=== PATIENT | female | born 1945 | race Caucasian/White ===

== ENCOUNTER → 2016-10-21 17:03 | Outpatient (CLI) | payer MEDICARE, OTHER | END | disposition home or self-care (01) | LOC: D.MAMMO 14:15 | DX: Z12.31 Encounter for screening mammogram for malignant neoplasm of breast (principal) ==

== ENCOUNTER 2019-08-29 10:10 | Inpatient (IN) | payer MEDICARE, OTHER ==
[~2019-08-29] VITALS: Ht 175.3 cm; Wt 56.9 kg
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
[2019-08-29 11:42] LABS: BASOPHILS 1.9 % (0-2); EOSINOPHILS 1.4 % (0-7); HEMATOCRIT 36.2 % (36.0-48.0); LYMPHOCYTES 23.6 % (15-50); MCH 32.6 pg (26.0-34.0); MCHC 33.1 g/dL (31.0-37.0); MCV 98.4 fL (80.0-100.0); MEAN PLATELET VOLUME 8.5 fL (7.4-10.4); NEUTROPHILS 65.1 % (40-80); PLATELET COUNT 417 10x3/uL (130-400); RBC 3.68 10x6/uL (4.00-5.40); RDW 15.5 % (11.5-14.5); WBC 4.2 10x3/uL (4.8-10.8)
[2019-08-29 11:44] LABS: ALBUMIN 3.3 g/dL (3.4-5.0); ALKALINE PHOSPHATASE 124 U/L (30-120); ALT (SGPT) 65 U/L (10-68); BILIRUBIN - TOTAL 0.48 mg/dL (0.2-1.3); CALC OSMOLALITY 267 mosm/kg (275-300); CALCIUM 8.6 mg/dL (8.5-10.1); CARBON DIOXIDE 22.7 mmol/L (21.0-32.0); CHLORIDE - SERUM 100 mmol/L (98-107); CHOL - HDL RATIO 1.7 ratio (2.3-4.1); CHOLESTEROL, TOTAL 118 mg/dL (0-200); CREATININE - SERUM 0.7 mg/dL (0.6-1.3); GLUCOSE 94 mg/dL (74-106); HDL CHOLESTEROL 71 mg/dL (32-96); POTASSIUM - SERUM 3.8 mmol/L (3.5-5.1); PROTEIN - SERUM 6.5 g/dL (6.4-8.2); SODIUM 135 mmol/L (136-145); THYROID STIMULATING HORMONE 4.75 uIU/mL (0.36-3.74); UREA NITROGEN 6 mg/dL (7-18); eGFR NON AFRICAN AMERICAN 87 mL/min (90-120)
[2019-08-29 12:09] LABS: TRIGLYCERIDE 837 mg/dL (30-200)
[2019-08-29 12:52] VITALS: BP 158/101
[2019-08-29] MEDS ORDERED: FERROUS SULFAT325 MG PO (12:54)
[2019-08-29] MEDS ORDERED: K-DUR20 MEQ PO (12:54)
[2019-08-29] MEDS ORDERED: MECLIZINE HCL25 MG PO (12:55)
[2019-08-29 14:26] LABS: BILIRUBIN NEGATIVE (NEGATIVE); GLUCOSE NEGATIVE (NEGATIVE); KETONE NEGATIVE (NEGATIVE); NITRITE NEGATIVE (NEGATIVE); UROBILINOGEN NORMAL (NORMAL)
--- NOTE | 2019-08-29 15:50 | NUR ---
The patient is sitting in the dayroom. Discussed with her a medication compliance list. Explained to her that the psychiatrist Dr. Bruce would like her to have the list so that she can let staff know that she is able to stay medication compliant. The information confused the patient as she said "Well, I don't even know the Dr. you are talking about." Explained to her that she met her earlier. Then she said "Oh, I already take those medications." Explained to her that she wiil need to let the nurses know about 15 minutes before the medication is due. She said "You mean I have to call a nurse everytime?" Explained to her that she will be here in the hospital and that the nurses will be here also. She said "Oh, ok." She took the list and folded it up.
[2019-08-29 20:00] VITALS: BP 133/84
--- NOTE | 2019-08-30 01:16 | NUR ---
RECEIVED PATIENT SITTING IN THE DAYROOM. WAS ORIENTED TO PERSON, PLACE AND MONTH. POOR INSIGHT PATIENT STATED "THAT'S WHAT MY DOCTOR RECOMMENDED. FOR TESTS. IT'S THE PROMINENT DOCTOR'S OFFICE [place]." GRANDIOSE. 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 I TRY NOT TO KYLIE OVER 130 POUNDS." ADMINISTER MEDS AND MONITOR COMPLIANCE. REORIENT NEEDED. MED COMPLIANT. PATIENT IS FORGETFUL AEB REPEATEDLY ASKING FOR HER PURSE AND TELEPHONE. POOR RETENTION. CONTINUE POC AND PROVIDE SAFE ENVIRONMENT.
[2019-08-30 07:13] LABS: RAPID PLASMA REAGIN Non Reactive (Non Reactive)
[2019-08-30 08:08] VITALS: Ht 175.3 cm; Wt 56.9 kg
[2019-08-30 08:27] VITALS: BP 154/96
--- NOTE | 2019-08-30 09:00 | NUR ---
NURSE ADMINISTERED ATIVAN 0.[address] JAIN ORDER FOR ANXIETY. PT WAS PACING HALLWAYS UNSURE WHAT SHE WAS LOOKING FOR AND GENERALLY WORRIED. WILL CONT TO ASSESS FOR EFFECTIVENESS.
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
--- NOTE | 2019-08-30 10:08 | NUR ---
PT IS PACING AROUND THE UNIT LOOKING AT ITEMS. PT IS FRIENDLY WITH STAFF THIS A.M. PT IS ALERT, CONFUSED AND ORIENTED TO SELF. WHEN ASKED WHERE SHE IS STATES "I DONT KNOW" AND PROCEEDS TO ANOTHER TOPIC. PT SLEPT 1.75 HOURS PREVIOUS SHIFT. ATIVAN 0.5 MG GIVEN WITH 0900 MEDICATIONS DUE TO PT BEING VERY WORRIED ABOUT WHERE SHE WAS AT AND PACING THE HALLWAYS. PT AMBULATING AND IS UNSTEADY REFUSES TO USE AN ASSITIVE DEVICE STATES "I GET VERTIAGO 2 TIMES A YEAR ABOUT THE TIME AND ITS JUST ALLERGIES." PT IS COMPLIANT WITH MEDS, ASSESSMENTS AND VITALS. NO GRANDOISE THINKING NOTED. WILL CONT PLAN OF CARE.
--- NOTE | 2019-08-30 10:24 | NUR ---
PRN ATIVAN 0.5 MG PO IS EFFETIVE AT THIS TIME. PT IS NOT PACING MUCH AND IS READING A MAGAZINE.
[2019-08-30 12:33] LABS: T4 THYROXINE 2.7 ug/dL (4.7-13.3); THYROID STIMULATING HORMONE 3.42 uIU/mL (0.36-3.74)
[2019-08-30 19:47] VITALS: BP 153/86
--- NOTE | 2019-08-31 04:15 | NUR ---
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
[2019-08-31 09:00] VITALS: BP 148/91
--- NOTE | 2019-08-31 09:00 | NUR ---
RECEIVED PT. IN DINING ROOM FOR B'FAST, ALERT, RESTLESS, PACING ABOUT UNIT, PILFERING. REPEATEDLY ASKING TO USE PHONE ALTHOUGH TELEPHONE TIMES EXPLAINED. MEDS ADMIN PER ORDERS WITH COMPLETE MED COMPLIANCE NOTED. CONT POC DIRECTED.
--- NOTE | 2019-08-31 10:47 | NUR ---
Patient pacing about unit experiencing anxiety, ativan 0.5 mg admin PO for anxiety.
[2019-08-31 20:07] VITALS: BP 129/70
--- NOTE | 2019-09-01 01:40 | NUR ---
B) Patient is alert and oriented to person, poor short term memory, anxious wandering, looking for her purse, I) Administered scheduled medications as ordered, PRN Haldol 2 mg PO given at 21:44 for anxiety, R) Mediation compliant, sleeping now quietly in her room, P) Continue plan of care.
[2019-09-01 08:25] VITALS: BP 141/79
[2019-09-01 09:00] VITALS: BP 141/79
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
--- NOTE | 2019-09-01 17:36 | NUR ---
PT. PLEASANT, CALM, COOPERATIVE THIS SHIFT, MILDLY CONFUSED. NO BEHAVIORAL ISSUES NOTED. PT. MUCH MORE SETTLED THIS SHIFT COMPARED TO 24 HOURS AGO EVIDENCED BY NO PACING WAS PREVIOUSLY THE CASE. MEDS ADMIN PER ORDERS WITH COMPLETE MED COMPLIANCE NOTED. CONT POC DIRECTED.
--- NOTE | 2019-09-01 19:24 | NUR ---
RECEIVED IN HALLWAY STANDING AT NURSES STATION SOCIALIZING WITH A PEER. CALM AND COOPERATIVE WITH CARE AND ASSESSMENT. ENCOURAGE TO EXPRESS NEEDS. RESTING IN BED WITH EYES CLOSED AT THIS TIME. CONTINUE PLAN OF CARE
[2019-09-02 07:53] VITALS: BP 120/75
--- NOTE | 2019-09-02 08:13 | NUR ---
RECEIVED IN HALLWAY OUTSIDE OF NURSES STATION. CALM AND COOPERATIVE WITH CARE AND ASSESSMENT. NO COMPLAINTS. ENCOURAGE TO EXPRESS NEEDS. REDIRECT AND REORIENT NEEDED. EATING BREAKFAST AT THIS TIME. CONTINUE PLAN OF CARE.
--- NOTE | 2019-09-02 20:00 | NUR ---
RECEIVED PATIENT STANDING AT THE NURSES STATION. ORIENTED TO PERSON AND PLACE. WORRIES EXCESSIVELY AND PACES. PATIENT IS FORGETFUL AND WILL ASK THE SAME QUESTIONS OVER AND OVER. TONIGHT PATIENT WAS ASKING FOR A LIST OF THE BOARD MEMBERS OF THE HOSPITAL. NO INSIGHT INTO THE REASON FOR HOSPITALIZATION. 1+ PITTING EDEMA NOTED TO LOWER EXTS. ENCOURAGING PATIENT TO LAY IN BED WITH LEGS ELEVATED. ADMINISTER MEDS AND MONITOR COMPLIANCE. REORIENT NEEDED. MED COMPLIANT. POOR REORIENTATION RELATED TO FORGETFULNESS AND POOR ATTENTION SPAN. CONTINUE POC AND PROVIDE SAFE ENVIRONMENT.
[2019-09-02 20:41] VITALS: BP 118/57
--- NOTE | 2019-09-02 21:47 | NUR ---
PATIENT IS PACING AND WORRYING ABOUT TOMORROW. RELATES SHE WANTS TO BE ABLE TO THINK CLEARLY TOMORROW. PRN ATIVAN 0.5MG PO ADMINISTERED WITOUT DIFFICULTY. ENCOURAGED PATIENT TO LAY DOWN AND KEEP LEGS ELEVATED.
[2019-09-03 07:34] VITALS: BP 147/84
--- NOTE | 2019-09-03 10:38 | NUR ---
REC'D IN HALLWAY SOCIALIZING WITH PEERS BY NURSES STATION. PT IS AWAKE AND ALERT. ORIENTED TO PERSON. PT IS VEY CONFUSED AT TIMES. PT BECOMES VERY ANXIOUS EASILY. PT PACES UNIT DURING SHIFT. PT IS ATTENDING GROUP THERAPY WITH PEERS AT THIS TIME. REDIRECT AND REORIENT NEEDED. WILL CPOC.
--- NOTE | 2019-09-03 12:59 | PN ---
PATIENT:VIKTOR JACKSON MEDICAL RECORD: [id number] LOCATION:[facility]112 ADMISSION DATE: 08/29/19 PROGRESS NOTE DATE OF SERVICE: 09/02/2019 SUBJECTIVE: The patient's case was discussed with staff. She has no new complaint. OBJECTIVE: The patient is partially oriented. She denies any thoughts of harming herself or others. She is sleeping and eating well. ASSESSMENT: Dementia. PLAN: Current medicines have been reviewed and will be maintained. Her long-term prognosis is guarded. TRANSINT:[id number] Voice Confirmation ID: [id number] DOCUMENT ID: [id number] TREY MORGAN MD at 1259 CC: [id number] DICTATION DATE: 09/02/19 1608 CARDIOTHORACIC ANESTHESIA TECHNICIAN: 09/02/192122 ADM IN [facility] [address] [place] [address]
--- NOTE | 2019-09-03 18:58 | NUR ---
RECEIVED IN HALLWAY OUTSIDE OF NURSES STATION. SOCIALIZING WITH PEERS. CALM AND COOPERATIVE WITH CARE AND ASSESSMENT. REDIRECT AND REORIENT NEEDED. CONTINUES TO SOCIALIZE WITH PEERS. CONTINUE PLAN OF CARE
[2019-09-03 20:22] VITALS: BP 111/62
--- NOTE | 2019-09-04 08:30 | NUR ---
RECEIVED IN HALLWAY OUTSIDE OF NURSES STATION. CALM AND COOPERATIVE WITH CARE AND ASSESSMENT. BECOMES AGITATED AT TIMES. REDIRECT AND REORIENT NEEDED. EATING BREAKFAST AT THIS TIME. CONTINUE PLAN OF CARE.
[2019-09-04 09:55] VITALS: BP 123/69
--- NOTE | 2019-09-04 10:00 | NUR ---
PATIENT YELLING AND CURSING AT PHOTOGRAPHIC PROCESS SCREEN MAKER AFTER BEING TOLD SHE CANNOT HAVE KNITTING NEEDLES ON THE UNIT. UNABLE TO REDIRECT AND ATTEMPTS TO ARGUE WITH STAFF AT THIS TIME. WILL CONTINUE TO MONITOR.
--- NOTE | 2019-09-04 11:04 | PN ---
PATIENT:VIKTOR JACKSON MEDICAL RECORD: [id number] LOCATION:[facility]112 ADMISSION DATE: 08/29/19 PROGRESS NOTE DATE OF SERVICE: 09/03/2019 SUBJECTIVE: The patient's case was discussed with staff. She has no new complaint. OBJECTIVE: The patient has been somewhat anxious and a little restless. She has pretty limited insight about her situation. ASSESSMENT: Dementia. PLAN: The patient will be treated with Aricept to assist with her cognitive impairment. I am going to give her a low dose of an antidepressant to assist with her restlessness and depressive symptoms. TRANSINT:[id number] Voice Confirmation ID: [id number] DOCUMENT ID: [id number] TREY MORGAN MD at 1104 CC: [id number] DICTATION DATE: 09/03/19 1441 ADOBE CQ DEVELOPER: 09/03/19 1832 ADM IN [facility] [address] [place] [address]
--- NOTE | 2019-09-04 20:49 | NUR ---
B.) PT IS ALERT AND ORIENTED TO SELF AND SITUATION. SHE IS ABLE TO AMBULATE ON HER OWN WITHOUT ASSISTANCE AND MAKE HER NEEDS KNOWN. SHE CAN BE LABILE AT TIMES BUT HAS DEEPALI VERY PLEASANT WITH STAFF AND MOST OF HER PEERS. I.) PROVIDED ALL PM MEDICATIONS PRESCRIBED. REDIRECT PRN. R.) COMPLIANT WITH ALL MEDICATIONS. EASY TO REDIRECT. P.) WILL CONTINUE TO MONITOR.
[2019-09-04 23:25] VITALS: BP 123/61
[2019-09-05 08:00] VITALS: BP 113/72
--- NOTE | 2019-09-05 11:34 | PN ---
PATIENT:VIKTOR JACKSON MEDICAL RECORD: [id number] LOCATION:[facility]ANDA [facility]112 ADMISSION DATE: 08/29/19 PROGRESS NOTE DATE OF SERVICE: 09/04/2019 SUBJECTIVE: The patient's case was discussed with staff. She has no new complaint. OBJECTIVE: The patient has tolerated her initial dose of Celexa well. I am going to increase the dose for tomorrow. ASSESSMENT: No change in diagnoses. PLAN: Supportive and educational interventions were made. TRANSINT:[id number] Voice Confirmation ID: [id number] DOCUMENT ID: [id number] TREY MORGAN MD at 1134 CC: [id number] DICTATION DATE: 09/04/19 1141 DRAW BENCH OPERATOR HELPER: 09/04/19 1253 [place] [address]
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
--- NOTE | 2019-09-05 12:13 | NUR ---
Nutrition Follow-up: Diet: Regular PO intake: 100% x all meals Last BM: 09/04/19 WT: 118# (09/01/19)-wheelchair; Admit WT: 127# (08/29/19)-wheelchair Meds reviewed. No new labs. Weight loss of -9# noted. Question accuracy of recorded weights as patient has had excellent and adequate PO intake DHS. Will continue to monitor PO intake and weight trend. Will offer oral nutrition supplement if PO intake and/or weight begin to trend down. RD following.
--- NOTE | 2019-09-05 13:18 | NUR ---
ALERT, CALM, COOPERATIVE THIS SHIFT. NO ADVERSE BEHAVIORS DESPITE CONTINUED CONFUSION. MEDS ADMIN PER ORDERS WITH COMPLETE COMPLIANCE NOTED. CONT. PLAN OF CARE.
--- NOTE | 2019-09-05 16:24 | PN ---
PATIENT:VIKTOR JACKSON MEDICAL RECORD: [id number] LOCATION:[facility]112 ADMISSION DATE: 08/29/19 PROGRESS NOTE DATE OF SERVICE: 09/05/2019 SUBJECTIVE: The patient's case was discussed with staff. She has no new complaint. OBJECTIVE: The patient is withdrawn, but has an euthymic mood. She is partially oriented. ASSESSMENT: Dementia. PLAN: Current medicines have been reviewed and will be maintained. Long-term prognosis is guarded. TRANSINT:[id number] Voice Confirmation ID: [id number] DOCUMENT ID: [id number] TREY OMRGAN MD at 1624 CC: [id number] DICTATION DATE: 09/05/19 1141 BARGE CAPTAIN: 09/05/19 1318 ADM IN [place] [id number] [place] [address]
[2019-09-05 19:30] VITALS: BP 122/58
--- NOTE | 2019-09-05 23:17 | NUR ---
B)RECEIVED PATIENT SITTING OUTSIDE THE NURSE'S STATION. ALERT AND INTRACTING WITH OTHER PEERS. PLEASANT AND COOPERATIVE. I)ADMINISTER MEDS AND MOITOR COMPLIANCE. REORIENT NEEDED. R)MED COMPLIANT. REORIENTS HOWEVER IS FORGETFUL AND REQUIRES REPEATED ORIENTATION I. E. AFTER TALKING WITH PEERS PATIENT ASKED "NOW WHAT DIRECTION DO WE GO?" INSTRUCTED PATIENT WHAT HER ROOM NUMBER IS AND SHE WENT TO HER ROOM. P)CONTINUE POC AND PROVIDE SAFE ENVIRONMENT.
--- NOTE | 2019-09-06 09:41 | NUR ---
The patient is awake and alert, she is pleasant and calm. She ambulates independently. Provide prescribed meds. Encourage group participation. She has poor insight into her situation. The patient is cooperative with meds and unit milieu. Continue POC.
[2019-09-06 09:44] VITALS: BP 110/66
[2019-09-06 09:45] VITALS: BP 110/60
[2019-09-06 20:00] VITALS: BP 142/69
--- NOTE | 2019-09-06 20:55 | NUR ---
B)SITTING AT THE NURSE'S STATION INTERACTING WITH PEERS. CALM AND COOPERATIVE. CONFUSED. I)ADMINISTER MEDS AND MONITOR COMPLIANCE. REORIENT NEEDED. R)MED COMPLIANT. REORIENTS HOWEVER IS FORGETFUL AND REQUIRES REORINETATION. COOPERATIVE WITH UNIT MILEU. P)CONTINUE POC AND PROVIDE SAFE ENVIRONMENT.
--- NOTE | 2019-09-07 08:05 | NUR ---
The patient is awake and alert, she is pleasant. She ambulates independently. She has some lower leg edema and she c/o pain on palpation. She is reading the morning paper in the hallway. She has some confusion and she does not like loud noises and she has no patience with other patients that are confused. Provide prescribed meds. The patient is compliant with meds. Continue POC.
[2019-09-07 08:24] VITALS: BP 108/72
--- NOTE | 2019-09-07 11:26 | PN ---
PATIENT:VIKTOR JACKSON MEDICAL RECORD: [id number] LOCATION:[facility] ADMISSION DATE: 08/29/19 PROGRESS NOTE DATE OF SERVICE: 09/06/2019 SUBJECTIVE: The patient's case was discussed with staff. She has no new complaint. OBJECTIVE: The patient is impaired cognitively, but not disruptive in any way behaviorally. She is partially oriented. She is tolerating her medications well. She does not have recollection of meeting with her associate attorney. ASSESSMENT: Dementia. PLAN: Current medicines have been reviewed and will be maintained. Once appropriate placement is arranged, she can reasonably be transitioned out of the hospital. TRANSINT:[id number] Voice Confirmation ID: [id number] DOCUMENT ID: [id number] TREY MORGAN MD at 1126 CC: [id number] DICTATION DATE: 09/06/19 0736 LOGISTICS INTERN: 09/06/19 0744 ADM IN [facility] [address] [place] [address]
[2019-09-07 19:25] VITALS: BP 172/61
--- NOTE | 2019-09-07 22:19 | NUR ---
B)RECEIVED PATIENT SITTING IN THE DINNING ROOM INTERACTING WITH PEERS. 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 ORIENTED TO SELF AND PLACE. I)ADMINISTER MEDS AND MONITOR COMPLIANCE. REORIENT NEEDED. R)MED COMPLIANT. COOPERATIVE WITH STAFF AND UNIT MILEU. REORIENTS FOR SHORT PERIODS OF TIME BUT IS FORGETFUL AND HAS TO BE REORIENTED. P)CONTINUE POC AND PROVIDE SAFE ENVIRONMENT.
--- NOTE | 2019-09-08 08:29 | NUR ---
RECEIVED IN HALLWAY OUTSIDE OF NURSES STATION. CALM AND COOPERATIVE WITH CARE AND ASSESSMENT. NO ARGUMENTATIVE BEHAVIORS THIS MORNING. REDIRECT AND REORIENT NEEDED. EATING BREAKFAST AT THIS TIME. CONTINUE PLAN OF CARE.
--- NOTE | 2019-09-08 11:01 | PN ---
PATIENT:VIKTOR JACKSON MEDICAL RECORD: [id number] LOCATION:[facility]112 ADMISSION DATE: 08/29/19 PROGRESS NOTE DATE OF SERVICE: 09/07/2019 SUBJECTIVE: The patient's case was discussed with staff. She has no new complaint. OBJECTIVE: The patient ate reasonably well yesterday. She also slept reasonably well yesterday. She is mostly oriented and her mood is euthymic. She has had no significant agitation today. ASSESSMENT: Dementia. PLAN: Current medicines have been reviewed. I am going to maintain her on the Celexa for its antidepressant effect and Aricept for its memory enhancing properties. I think she has improved significantly and anticipate that she can be transitioned out of the hospital soon and at this point we are waiting for adult protective services to assist us with their decision and placement. TRANSINT:[id number] Voice Confirmation ID: [id number] DOCUMENT ID: [id number] TREY MORGAN MD at 1101 CC: [id number] DICTATION DATE: 09/07/19 1223 SHAGGER: 09/07/19 1239 ADM IN [facility] [address] [place] [address]
[2019-09-08 11:19] VITALS: BP 128/66
--- NOTE | 2019-09-08 18:53 | NUR ---
RECEIVED IN HALLWAY OUTSIDE OF NURSES STATION. CALM AND COOPERATIVE WITH CARE AND ASSESSMENT. ENCOURAGE TO EXPRESS NEEDS. REDIRECT AND REORIENT NEEDED. RESTING IN BED WITH EYES CLOSED. CONTINUE PLAN OF CARE
[2019-09-09 08:58] VITALS: BP 131/73
--- NOTE | 2019-09-09 09:36 | NUR ---
RECEIVED IN HALLWAY OUTSIDE OF NURSES STATION. CALM AND COOPERATIVE WITH CARE AND ASSESSMENT. NO ARGUMENTATIVE BEHAVIOR THIS MORNING. REDIRECT AND REORIENT NEEDED. SOCIALIZING WITH OTHER PATIENTS AT THIS TIME. CONTINUE PLAN OF CARE.
--- NOTE | 2019-09-09 10:58 | PN ---
PATIENT:VIKTOR JACKSON MEDICAL RECORD: [id number] LOCATION:[facility]112 ADMISSION DATE: 08/29/19 PROGRESS NOTE DATE OF SERVICE: 09/08/2019 SUBJECTIVE: The patient's case was discussed with staff. She has no new complaint. OBJECTIVE: The patient is in good behavioral control. She has limited insight about her situation. She has not been aggressive. ASSESSMENT: Dementia. PLAN: Current medicines have been reviewed and will be maintained. Long-term prognosis is guarded. Supportive and educational interventions were made. TRANSINT:[id number] Voice Confirmation ID: [id number] DOCUMENT ID: [id number] TREY MORGAN MD at 1058 CC: [id number] DICTATION DATE: 09/08/19 1102 AUTOMOTIVE SHOP FOREMAN: 09/08/19 1143 ADM IN [facility] [address] [place] [address]
[2019-09-09 19:55] VITALS: BP 124/65
--- NOTE | 2019-09-09 20:35 | NUR ---
B.) PT IS ALERT AND ORIENTED TO SELF, PLACE AND SITUATION. SHE IS PLEASANT WITH STAFF AND PEERS. SHE IS ABLE TO MAKE HER NEEDS KNOWN. SHE IS RECEIVED IN THE HALLWAY SOCIALIZING. I.) PROVIDED PM MEDICATIONS. REDIRECT NEEDED. R.) COMPLIANT WITH ALL MEDICATIONS. EASY TO REDIRECT. P.) WILL CONTINUE TO MONITOR.
[2019-09-10 08:12] VITALS: BP 117/74
--- NOTE | 2019-09-10 08:30 | NUR ---
RECEIVED IN HALLWAY OUTSIDE OF NURSES STATION. CALM AND COOPERATIVE WITH CARE AND ASSESSMENT. NO ARGUMENTATIVE BEHAVIOR. REDIRECT AND REORIENT NEEDED. EATING BREAKFAST AT THIS TIME. CONTINUE PLAN OF CARE.
--- NOTE | 2019-09-10 11:02 | PN ---
PATIENT:VIKTOR JACKSON MEDICAL RECORD: [id number] LOCATION:[facility]112 ADMISSION DATE: 08/29/19 PROGRESS NOTE DATE OF SERVICE: 09/09/2019 SUBJECTIVE: The patient's case was discussed with staff. She has no new complaint. OBJECTIVE: The patient denies intent to harm herself or others. She is tolerating her medicines well. She is mostly oriented. She still has some significant short-term memory impairment, but on the whole she has improved significantly. ASSESSMENT: Dementia. PLAN: Current medicines have been reviewed and will be maintained. She will be followed for any clinical changes with her current medications. TRANSINT:[id number] Voice Confirmation ID: [id number] DOCUMENT ID: [id number] TREY MORGAN MD at 1102 CC: [id number] DICTATION DATE: 09/09/19 1349 WAFER MACHINE OPERATOR: 09/09/19 2309 ADM IN [place] [address] [place] [address]
--- NOTE | 2019-09-10 20:51 | NUR ---
RECEIVED IN HALLWAY OUTSIDE OF NURSES STATION. SOCIALIZING WITH PEERS. HELPFUL WITH PEERS. CALM AND COOPERATIVE WITH CARE AND ASSESSMENT. ENCOURAGE TO EXPRESS NEEDS. CONTINUES TO BE HELPFUL WITH PEERS. CONTINUE PLAN OF CARE
[2019-09-10 22:07] VITALS: BP 108/65
[2019-09-11 09:00] VITALS: BP 125/70
--- NOTE | 2019-09-11 14:18 | PN ---
PATIENT:VIKTOR JACKSON MEDICAL RECORD: [id number] LOCATION:[facility]112 ADMISSION DATE: 08/29/19 PROGRESS NOTE DATE OF SERVICE: 09/10/2019 SUBJECTIVE: The patient's case was discussed with staff. She has no new complaint. OBJECTIVE: The patient has significantly improved. She is ambulating better. She is much more cooperative and her cognition is better. This points to the fact that she probably was drinking much more than she thinks or has related to us. I am encouraged by her improvement and I have reviewed current medicines. ASSESSMENT: Dementia. PLAN: The patient will be maintained on current medicines, which I have reviewed. Her long-term prognosis is guarded. TRANSINT:[id number] Voice Confirmation ID: [id number] DOCUMENT ID: [id number] TREY MORGAN MD at 1418 CC: [id number] DICTATION DATE: 09/10/19 1223 WIRE DRAWING MACHINE OPERATOR: 09/10/192034 ADM IN [place] [id number] [place] [address]
--- NOTE | 2019-09-11 16:10 | NUR ---
PATIENT COOPERATIVE THIS SHIFT WITH NO ADVERSE BEHAVIORS NOTED BUT CONTINUES TO BE CONFUSED. NO S/S ETOH WITHDRAWAL. MEDS ADMIN PER ORDERS WITH COMPLETE MED COMPLIANCE NOTED. CONT PLAN OF CARE DIRECTED.
--- NOTE | 2019-09-11 20:35 | NUR ---
PATIENT IS DEMANDING AT TIMES AND TRIES TO TAKE OVER SITUATIONS OF OTHER PATIENTS. SHE IS INTRUSIVE, ABLE TO MAKE NEEDS AND CONCERNS KNOWN, NOT MUCH CONFUSION NOTED. COMPLIANT WITH MEDS
[2019-09-11 22:02] VITALS: BP 126/71
--- NOTE | 2019-09-12 09:27 | PN ---
PATIENT:VIKTOR JACKSON MEDICAL RECORD: [id number] LOCATION:[facility] ADMISSION DATE: 08/29/19 PROGRESS NOTE DATE OF SERVICE: 09/11/2019 SUBJECTIVE: The patient's case was discussed with staff. She has no new complaint. OBJECTIVE: The patient has shown significant improvement. She still has cognitive impairment and certainly is not intact, but relative to admission, she is dramatically better. She has no thoughts of harming herself or others. [facility] is going to evaluate her for retirement placement, but I doubt she is going to meet criteria in her current condition. It is going to create something of a problem because even though she may not be appropriate for retirement, she certainly is not appropriate to be living independently. ASSESSMENT: Dementia. PLAN: Current medicines have been reviewed and will be maintained. Long-term prognosis is guarded. TRANSINT:[id number] Voice Confirmation ID: [id number] DOCUMENT ID: [id number] TREY MORGAN MD at 0927 CC: [id number] DICTATION DATE: 09/11/19 1522 LIABILITY CLAIMS ADJUSTER: 09/11/19 1801 ADM IN [facility] [address] [place] [address]
[2019-09-12 10:25] VITALS: BP 115/65
--- NOTE | 2019-09-12 10:49 | NUR ---
Nutrition Follow-up: Diet: Regular PO intake: 100% Last BM: 09/11/19. WT: 120# (09/08/19); Admit WT: 127# (08/29/19) Meds noted: senokot. No new chem labs to review. Noted inconsistencies in WTs since admit (+/-19#), will continue to monitor weight trend. PO intake has been adequate since admit so patient should not be losing weight. Recommend continue current diet. RD following.
--- NOTE | 2019-09-12 11:02 | NUR ---
The patient is awake and alert, she is pleasant. She has poor insight into her situation. She ambulates independently. She remains confused and does try to compensate at times. Provide prescribed meds. The patient is compliant with meds. Continue POC.
[2019-09-12 19:30] VITALS: BP 139/73
--- NOTE | 2019-09-12 22:47 | NUR ---
B)RECEIVED PATIENT SITTING IN THE DAYROOM. NO INSIGHT INTO REASON FOR HOSPITALIZATION. CAN CARRY ON CONVERSATION HOWEVER HAS TO BE DIRECTED TO HER ROOM. TRIES TO HELP WITH OTHER PATIENTS. I)ADMINISTER MEDS AND MONITOR COMPLIANCE. REORIENT NEEDED. R)MED COMPLIANT. REDIRECTS HOWEVER IS FORGETFUL AND DOES NOT RETAIN INFORMATION. COOPERATIVE AND PLEASANT. P)CONTINUE POC AND PROVIDE SAFE ENVIRONMENT.
--- NOTE | 2019-09-13 10:07 | NUR ---
The patient is awake and alert, she is pleasant and she is interacting with staff and peers. She is oriented x3 and she is confused. She is forgetful as she asks a question and then 5 minutes later she forgets. She ambulates independently. Provide prescribed meds. The patient is compliant with meds. Continue POC.
--- NOTE | 2019-09-13 13:40 | PN ---
PATIENT:VIKTOR ROD MEDICAL RECORD: [id number] LOCATION:[facility]112 ADMISSION DATE: 08/29/19 PROGRESS NOTE DATE OF SERVICE: 09/12/2019 SUBJECTIVE: The patient's case was discussed with staff. She has no new complaint. OBJECTIVE: The patient is partially oriented, cooperative and has a euthymic mood. ASSESSMENT: Dementia. PLAN: Current medicines have been reviewed and will be maintained. I think her improvement is substantial and probably related to the fact that she was drinking excessively at least in part. Information has become available since she has been here that she apparently every 3 days, was taking a taxi to a liquor store and the person who pays her bills for her was seeing these regular charges for a taxi and then a bill at the liquor store. When asked about this, Ms. Rod is evasive and dismissive and very much minimizes the amount she was drinking. I think alcohol abuse is almost certainly a contributing factor to her presentation and it is also in large part an explanation for her improvement. She has not shown any evidence of alcohol withdrawal. TRANSINT:[id number] Voice Confirmation ID: [id number] DOCUMENT ID: [id number] TREY MORGNA MD at 1340 CC: [id number] DICTATION DATE: 09/12/19 1012 SLEEVE FIXER: 09/12/19 1503 ADM IN [facility] [address] [place] [address]
[2019-09-13 13:52] VITALS: BP 123/71
[2019-09-13 20:00] VITALS: BP 127/66
--- NOTE | 2019-09-14 00:33 | NUR ---
B.) PT IS C/O NAUSEA. SHE IS RECEIVED IN HER ROOM RESTING CALMLY. SHE IS PLEASANT WITH STAFF. SHE IS ORIENTED TO SELF AND SITUATION. I.) PROVIDED PM MEDICATIONS PRESCRIBED. REDIRECT NEEDED. R.) COMPLIAT WITH ALL MEDICATIONS. EASY TO REDIRECT. P.) WILL CONTINUE TO MONITOR.
[2019-09-14 08:09] VITALS: BP 117/72
--- NOTE | 2019-09-14 12:42 | NUR ---
The patient is awake and alert, she is pleasant and he has not shown any inappropriate behaviors. She is confused and has poor insight into her situation, but she interacts well with staff and her peers. Provide prescribed meds. The patient is compliant with meds and unit milieu. Continue POC.
[2019-09-14 21:17] VITALS: BP 117/72
[2019-09-14 21:34] VITALS: BP 126/68
--- NOTE | 2019-09-14 23:26 | NUR ---
B.) PT IS ALERT AND ORIENTED TO SELF AND PLACE. SHE HAS POOR INSIGHT INTO HER SITUATION. SHE IS ABLE TO MAKE HER NEEDS KNOWN. SHE IS PLEASANT WITH STAFF AND PEERS. SHE AMBULATES WITHOUT ASSISTANCE. I.) PROVIDED PM MEDICATIONS PRESCRIBED. REDIRECT NEEDED. R.) COMPLIANT WITH ALL MEDICATIONS. EASY TO REDIRECT. P.) WILL CONTINUE TO MONITOR.
[2019-09-15 09:07] VITALS: BP 106/65
--- NOTE | 2019-09-15 11:06 | NUR ---
COMPLIANT WITH STAFF AND MEDS.POOR INSITE TO WHY SHE IS HERE.INTRUSIVE AT TIMES.WILL CONTINUE WITH CURRENT CASTAÑEDA OF CARE,MONNITOR FOR CHANGES AND SAFETY.
[2019-09-15 20:00] VITALS: BP 125/63
--- NOTE | 2019-09-16 00:02 | NUR ---
B.) PT IS ALERT AND ORIENTED TO SELF AND SITUATION. SHE IS ABLE TO AMBULATE ON HER OWN WITHOUT ASSIST. SHE IS ABLE TO MAKE HER NEEDS KNOWN. SHE IS INTRUSIVE WITH PEERS AT TIMES. I.) PROVIDED PM MEDICATIONS PRESCRIBED. REDIRECT NEEDED. R.) COMPLIANT WITH ALL MEDICATIONS. EASY TO REDIRECT. P.) WILL CONTINUE TO MONITOR.
[2019-09-16 00:07] VITALS: BP 125/63
[2019-09-16 08:36] VITALS: BP 114/67
--- NOTE | 2019-09-16 08:45 | NUR ---
RECEIVED IN HALLWAY OUTSIDE OF NURSES STATION. CALM AND COOPERATIVE WITH CARE AND ASSESSMENT. NO BEHAVIORS THIS MORNING. REDIRECT AND REORIENT NEEDED. EATING BREAKFAST AND SOCIALIZING WITH PEERS AT THIS TIME. CONTINUE PLAN OF CARE.
--- NOTE | 2019-09-16 13:55 | PN ---
PATIENT:VIKTOR JACKSON MEDICAL RECORD: [id number] LOCATION:[facility]112 ADMISSION DATE: 08/29/19 PROGRESS NOTE DATE OF SERVICE: 09/15/2019 SUBJECTIVE: The patient states that she has had a good day and that she slept well last night. Reviewed care. The patient's case was discussed with the staff and the patient has no new complaints. OBJECTIVE: The patient is alert and oriented to person and place. Her general appearance is appropriate. Her speech is soft, low tone, low volume. Her eye contact is fair. Her insight is impaired. Her thought and concentration is distracted. Her mood is depressed and anxious with a restricted affect, it is brighter today than yesterday. Mild anxiety. Memory is poor for remote events. The patient does not appear to be attending to visual or auditory hallucinations. Insight and judgment are poor. ASSESSMENT: No changes to previous diagnosis. PLAN: The plan is to continue to monitor with her current meds and to strive to stabilize her mood and behaviors to keep the patient safe and to prepare her for discharge. Dictated By: Noemi Alamo APN I have interviewed/examined the above patient and agree with these documented findings. TRANSINT:[id number] Voice Confirmation ID: [id number] DOCUMENT ID: [id number] TREY MORGAN MD at 1355 at 1555 CC: [id number] DICTATION DATE: 09/15/19 1849 PRINCIPAL TRAINER: 09/16/19 0653 ADM IN [facility] [address] [place] [address]
--- NOTE | 2019-09-16 16:22 | PN ---
PATIENT:VIKTOR JACKSON MEDICAL RECORD: [id number] LOCATION:AMANDA Munoz ADMISSION DATE: 08/29/19 PROGRESS NOTE DATE OF SERVICE: 09/13/2019 SUBJECTIVE: The patient's case was discussed with staff. The patient reports she has had a hamburger for lunch. States slept well and woke without feeling tired. The patient denies any new complaints. OBJECTIVE: The patient is partially oriented, cooperative and has a euthymic mood. She is ambulating in the halls, ate 100% of meals, slept 8.75 hours and is compliant with her medications. The patient's impulsivity is moderate to high. Her judgment and insight are poor. The patient is more conversational with staff. ASSESSMENT: Dementia. PLAN: Continue with current medications, which have been reviewed and will be maintained. Pending [place] assessment results. Monitor for safety, nutrition and cognition. Dictated By: Noemi Alamo APN I have interviewed/examined the above patient and agree with these documented findings. TRANSINT:[id number] Voice Confirmation ID: [id number] DOCUMENT ID: [id number] TREY MORGAN MD at 1622 at 1555 CC: [id number] DICTATION DATE: 09/13/19 1740 BUILDING TRADES TEACHER: 09/13/19 2249 ADM IN [facility] [address] [place] [address]
--- NOTE | 2019-09-16 16:22 | PN ---
PATIENT:VIKTOR JACKSON MEDICAL RECORD: [id number] LOCATION:[facility]112 ADMISSION DATE: 08/29/19 PROGRESS NOTE DATE OF SERVICE: 09/14/2019 SUBJECTIVE: The patient reports "I'm feeling better" and that she loves to cook and that she recently just moved. The patient's case was discussed with staff and the patient has no new complaints. OBJECTIVE: The patient is currently reading a book. She is alert to person and place, disoriented to time and situation. Her voice is soft, low tone, and low volume. Her associations are intact. Her eye contact is fair. Her judgment and insight is impaired. Her concentration is circumstantial. Her mood is depressed and anxious. Her affect is restricted. Anxiety, mild. The patient does not appear to be attending to hallucinations or any psychosis. Her judgment and insight are poor. ASSESSMENT: No change to previous diagnosis. PLAN: Is to continue with current medications and to continue to monitor and strive to stabilize her mood and behaviors, to keep the patient safe and prepare her for discharge. Dictated By: Noemi Alamo APN I have interviewed/examined the above patient and agree with these documented findings. TRANSINT:[id number] Voice Confirmation ID: [id number] DOCUMENT ID: [id number] TREY MORGAN MD at 1622 at 1555 CC: [id number] DICTATION DATE: 09/14/19 1530 SPECK DYER: 09/15/19 0302 ADM IN [facility] [address] [place] [address]
[2019-09-16 20:08] VITALS: BP 121/58
--- NOTE | 2019-09-17 02:17 | NUR ---
B)RECEIVED PATIENT SITTING IN THE DAYROOM. PLEASANT AND TRIES TO HELP WITH THE PATIENTS. CONFUSED AND DISORIENTED. RELATES THE REASON FOR HOSPITALIZATION "OH MY DOCTOR SAID I MIGHT NEED TO MAKE A TRIP OR TWO BUT NOT I THINK IT IS ONLY GOING TO ONE." I)ADMINISTER MEDS AND MONITOR COMPLIANCE. REORIENT NEEDED. R)MED COMPLIANT. PAIENT REORIENTS HOWEVER IS FORGETFUL AND IS NOT ABLE TO RETAIN INFORMATION. P)CONTINUE POC AND PROVIDE SAFE ENVIRONMENT.
--- NOTE | 2019-09-17 09:33 | NUR ---
RECEIVED IN HALLWAY OUTSIDE OF NURSES STATION. CALM AND COOPERATIVE WITH CARE AND ASSESSMENT. NO AGITATION. NO ARGUMENTATIVE BEHAVIORS. REDIRECT AND REORIENT NEEDED. EATING BREAKFAST AT THIS TIME. CONTINUE PLAN OF CARE.
[2019-09-17 10:52] VITALS: BP 128/68
--- NOTE | 2019-09-17 11:47 | PN ---
PATIENT:VIKTOR JACKSON MEDICAL RECORD: [id number] LOCATION:[facility]AN[facility]ender[facility] ADMISSION DATE: 08/29/19 PROGRESS NOTE DATE OF SERVICE: 09/16/2019 SUBJECTIVE: The patient's case was discussed with staff. She has no new complaint. OBJECTIVE: The patient is, but still has some significant short-term memory. On casual conversation, she appears quite intact and conversant, but then beneath the surface it is clear she is significantly impaired. For example, when discussing the possibility that she may be sent home, she said she is going to need some help with getting there because she does not know her address. She tells me this matter of fact as though not knowing her own address is not anything unusual. ASSESSMENT: No change in diagnoses. PLAN: [facility] and their recommendation is pending. I anticipate that they are not going to approve her for jail placement at which case the next step will be to seek guidance from adult protective services and It is unclear what their decision would be. TRANSINT:[id number] Voice Confirmation ID: [id number] DOCUMENT ID: [id number] TREY MORGAN MD at 1147 CC: [id number] DICTATION DATE: 09/16/19 1638 TAX ASSISTANT: 09/17/19 0029 ADM IN [facility] [address] [facility] [place] [address]
[2019-09-17 22:36] VITALS: BP 134/73
--- NOTE | 2019-09-17 23:23 | NUR ---
B.) PT IS ALERT AND ORIENTED TO SELF AND SITUATION. SHE IS INTRUSIVE WITH PEERS. SHE IS ABLE TO AMBULATE WITHOUT ASSIST AND MAKE HER NEEDS KNOWN. I.) PROVIDED PM MEDICATIONS PRESCRIBED. REDIRECT OFTEN. R.) COMPLIANT WITH ALL MEDICATIONS. EASY TO REDIRECT. P.) WILL CONTINUE TO MONITOR
[2019-09-18 10:33] VITALS: BP 114/65
--- NOTE | 2019-09-18 12:44 | NUR ---
RECEIVED IN HALLWAY OUTSIDE OF NURSES STATION. CALM AND COOPERATIVE WITH CARE AND ASSESSMENT. HELPFUL TO OTHER PATIENTS. NO BEHAVIORS. REDIRECT AND REORIENT NEEDED. EATING LUNCH AT THIS TIME. CONTINUE PLAN OF CARE.
--- NOTE | 2019-09-18 15:31 | PN ---
PATIENT:VIKTOR JACKSON MEDICAL RECORD: [id number] LOCATION:[facility] ADMISSION DATE: 08/29/19 PROGRESS NOTE DATE OF SERVICE: 09/17/2019 SUBJECTIVE: The patient's case was discussed with staff. She has no new complaint. OBJECTIVE: The patient is eating well and sleeping well. She has significant cognitive impairment. For example, she told me that she was going to need help getting home because she cannot remember her address. ASSESSMENT: Dementia. PLAN: At this point, the ruling on custodial placement is pending from Assignment Editor. Based upon their approval or disapproval, I will know what steps to take next. I think this is very difficult position that the patient is in. She is not really appropriate to live independently, but she is only marginally appropriate to live in a custodial. Unfortunately, there really does not appear to be any one who can give her some significant degree of supervision and she cannot really afford assisted living. Unless forced to do so through a court order, she is not going to do anything except go home. TRANSINT:[id number] Voice Confirmation ID: [id number] DOCUMENT ID: [id number] TREY MORGAN MD at 1531 CC: [id number] DICTATION DATE: 09/17/19 1426 INVISIBLE BRACES ORTHODONTIST: 09/18/19 0425 ADM IN [place] [id number] [place] [address]
[2019-09-18 21:00] VITALS: BP 142/64
--- NOTE | 2019-09-19 02:26 | NUR ---
B.) PT IS ALERT AND ORIENTED TO SELF AND SITUATION. SHE IS ABLE TO AMBULATE WITHOUT ASSIST AND MAKE HER NEEDS KNOWN. SHE IS CALM AND COOPERATIVE WITH STAFF AND PLEASANT WITH PEERS. SHE IS OBSERVED ATTEMPTING TO HELP OTHER FIND THEIR ROOM. I.) PROVIDED PM MEDICATIONS PRESCRIBED. RECORDED EKG. R.) COMPLIANT WITH ALL MEDICATIONS AND EKG. P.) CONTINUE TO MONITOR.
--- NOTE | 2019-09-19 09:00 | NUR ---
RECEIVED IN HALLWAY OUTSIDE OF NURSES STATION. CALM AND COOPERATIVE WITH CARE AND ASSESSMENT. NO BEHAVIORS NOTED. REDIRECT AND REORIENT NEEDED. EATING BREAKFAST AT THIS TIME. CONTINUE PLAN OF CARE.
--- NOTE | 2019-09-19 11:25 | NUR ---
Nutrition Follow-up: Diet: Regular PO intake: 75-100% x all meals Last BM: 09/18/19. WT: 121# (09/15/19); Admit WT: 127# (08/29/19) Meds noted: senokot. No new labs. Question accuracy of admit WT vs. fluid status. Patient has had excellent PO intake since admit. Noted wt down -6#, however it seems to be trending steady/up most recently. Recommend continue current diet. RD following.
--- NOTE | 2019-09-19 16:47 | PN ---
PATIENT:VIKTOR JACKSON MEDICAL RECORD: [id number] LOCATION:[facility] ADMISSION DATE: 08/29/19 PROGRESS NOTE DATE OF SERVICE: 09/18/2019 SUBJECTIVE: The patient's case was discussed with staff. She has no new complaint. OBJECTIVE: The patient is oriented to person, place and somewhat to time and situation. The office of long-term care or at least their intermediate [facility] has examined the patient and has determined that she does not meet criteria for a longterm. I presume that it is their opinion that she simply does not have a sufficient degree of dementia to justify this level of care. ASSESSMENT: Dementia. PLAN: This patient has improved. She is much more cognizant than she was when she came in. I think the explanation for that is partially the fact that she is in a structured environment with regular queuing in a consistent schedule. I think the other part is that she is not at risk getting alcohol on a regular basis. To say that she does not have significant dementia though is wrong. This patient comes across very intact in casual conversation, but she is not. When told that she might end up going home, she was concerned because she does not know her address and wants us to try and call someone who does. Last night, she kept coming out of the room that she is in, the same room she has been since admission here on August 29 and is asking the nursing staff where her room is. She has dementia, it is advanced. I know she looks intact in casual conversation, but I do not think it is appropriate for her to live at home alone. Given the fact that she has limited financial resources and no close family an intermediate solution such as assisted living is not an option. It appears that it is either at home alone or in a longterm and I do not have an intermediate level of care. This is my clinical opinion regarding the actions of [facility] the office of long-term care, adult protective services and the court that hears cases of this kind. I am not sure what these agencies in individuals can or cannot do, but does not change my opinion clinically. I know that these exterior forces or agencies may influence me or necessitate that I do something I am not comfortable with, but it does not change my opinion, she is impaired. She needs supervision. TRANSINT:[id number] Voice Confirmation ID: [id number] DOCUMENT ID: [id number] TREY MORGAN MD at 1647 CC: [id number] DICTATION DATE: 09/18/19 1603 DISPUTE RESOLUTION ANALYST: 09/18/19 2124 ADM IN [facility] [address] [id number]
[2019-09-19 18:22] VITALS: BP 117/68
[2019-09-19 20:00] VITALS: BP 130/70
--- NOTE | 2019-09-19 21:13 | NUR ---
B.) PT IS ALERT AND ORIENTED TO SELF AND AT TIMES SITUATION. SHE IS ABLE TO AMBULATE WITHOUT ASSIST AND EXPRESSES HER NEEDS AND WANTS. SHE IS PLEASANT, CALM AND COOPERATIVE WITH STAFF. SHE CAN BE INTRUSIVE WITH OTHERS CARE AT TIMES. I.) PROVIDED PM MEDICATIONS PRESCRIBED. REDIRECT NEEDED. R.) COMPLIANT WITH ALL MEDICATIONS. EASY TO REDIRECT. P.) WILL CONTINUE TO MONITOR.
--- NOTE | 2019-09-20 06:50 | NUR ---
PT IS TEARFUL THIS MORNING STATES "I MISS MY ANIMALS. THIS IS THE WORST SITUATION I HAVE EVER BEEN IN." TRIED TO REDIRECT. SHE ASKED TO BE ALONE.
--- NOTE | 2019-09-20 10:00 | NUR ---
ALERT, CALM, COOPERATIVE, CONFUSED. MEDS ADMIN PER ORDERS WITH COMPLETE MED COMPLIANCE NOTED. INTRUSIVE AT TIMES. NO FURTHER ADVERSE BEHAVIORS NOTED. CONTINUE PLAN OF CARE.
[2019-09-20 10:32] VITALS: BP 130/61
[2019-09-20 20:00] VITALS: BP 126/60
--- NOTE | 2019-09-21 00:04 | NUR ---
B)RECEIVED PATIENT SITTING IN THE DAYROOM. CONFUSED AND DISORIENTED. CAN CARRY ON A CONVERSATION BUT THEN HAS TO ASK WHERE HER ROOM IS. 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 TRIES TO HELP WITH THE OTHER PATIENTS. I)ADMINISTER MEDS AND MONITOR COMPLIANCE. REORIENT NEEDED. R)MED COMPLIANT. POOR REORIENTATION DUE TO IMPAIRED ABILITY TO REATAIN INFORMATION. P)CONTINUE POC AND PROVIDE SAFE ENVIRONMENT.
[2019-09-21 10:48] VITALS: BP 119/65
--- NOTE | 2019-09-21 11:11 | NUR ---
The patient is awake and alert she is pleasant. She has poor insight into her situation. She ambulates independently. She is forgetful. She is conversing with other patient's. Provide prescribed meds. The patient is compliant with meds. Continue POC.
[2019-09-21 20:00] VITALS: BP 142/68
--- NOTE | 2019-09-22 00:36 | NUR ---
PATIENT IS CONFUSED BUT PLEASANT, SHE HAS TO BE TOLD WHERE HER ROOM IS REPEATEDLY, COMPLIANT WITH MEDS. WILL FOLLOW POC
--- NOTE | 2019-09-22 09:00 | NUR ---
RECEIVED IN HALLWAY OUTSIDE OF NURSES STATION. CALM AND COOPERATIVE WITH CARE AND ASSESSMENT. NO BEHAVIORS. REDIRECT AND REORIENT NEEDED. EATING BREAKFAST AT THIS TIME. CONTINUE PLAN OF CARE.
[2019-09-22 09:36] VITALS: BP 128/68
[2019-09-22 20:00] VITALS: BP 118/72
--- NOTE | 2019-09-23 01:05 | NUR ---
RECEIVED IN HALLWAY. SITTING IN A CHAIR WITH PEERS AT HER SIDE. CALM AND COOPERATIVE WITH CARE AND ASSESSMENT. ENCOURAGE TO EXPRESS NEEDS. REORIENT NEEDED. RESTING IN BED WITH EYES CLOSED AT THIS TIME. CONTINUE PLAN OF CARE
[2019-09-23 10:55] VITALS: BP 112/64
--- NOTE | 2019-09-23 13:37 | PN ---
PATIENT:VIKTOR JACKSON MEDICAL RECORD: [id number] LOCATION:[facility] ADMISSION DATE: 08/29/19 PROGRESS NOTE DATE OF SERVICE: 09/20/2019 SUBJECTIVE: The patient's care was discussed with staff. The patient was very tearful and stating that she was anticipating that she was going to get to leave here today at 5 and that she has a dog and 2 cats to care for. She also states that she is relocating to a new place and it really needs to get cleaned up. OBJECTIVE: The patient is slightly disheveled. The patient is oriented to person and place, disoriented to time and situation. Her speech is soft, low tone, low volume. Her associations are loose. Her eye contact is good. Her judgment and insight are impaired. Her mood is depressed and anxious. Her affect is tearful. Her anxiety is moderate. Her memory is poor for both remote and recent. The patient does not appear to be attending to any visual or auditory hallucination. The patient denies any suicidal ideation. Her judgment and insight are poor. Impulsivity is high. ASSESSMENT: No change to previous diagnosis. PLAN: We will continue to monitor her for her degree of confusion. Also, continue to monitor her medications and stabilize her mood. Monitor her eating and her sleep patterns and work on discharge placement. Dictated By: Noemi Alamo APN I have interviewed/examined the above patient and agree with these documented findings. TRANSINT:[id number] Voice Confirmation ID: [id number] DOCUMENT ID: [id number] TREY MORGAN MD at 1337 at 1555 CC: [id number] DICTATION DATE: 09/20/19 1849 INSTALLER INSPECTOR FINAL: 09/21/19 0132 ADM IN [facility] [address] [place] [address]
--- NOTE | 2019-09-23 13:37 | PN ---
PATIENT:VIKTOR JACKSON MEDICAL RECORD: [id number] LOCATION:[facility] ADMISSION DATE: 08/29/19 PROGRESS NOTE DATE OF SERVICE: 09/21/2019 DATE OF SERVICE: 09/21/2019 SUBJECTIVE: The patient's care was discussed with staff. The patient is sitting at a table. She states that she is reading her book and that she slept very well last night. She states that she feels her medications are working and that depression runs in her family. OBJECTIVE: General appearance is appropriate. The patient is alert to person, place and time. Her speech is clear, soft, low tone, low volume. Her associations are loose. Her eye contact is good. Her judgment and insight are impaired. Her thought and concentration is still circumstantial. Her mood is depressed and anxious. Affect is restricted. Anxiety is mild. Memory is poor for some recent remote events. Her judgment is poor. Impulsivity is high. ASSESSMENT: No changes. PLAN: Treatment reviewed. We will continue still to monitor her for her stabilization of her mood. Her eating and sleep patterns, the patient did sleep 8.25 hours and did increase her food intake and was compliant with her medications. Dictated By: Noemi Alamo APN I have interviewed/examined the above patient and agree with these documented findings. TRANSINT:[id number] Voice Confirmation ID: [id number] DOCUMENT ID: [id number] TREY MORGAN MD at 1337 at 1547 CC: [id number] DICTATION DATE: 09/21/19 1208 LATEX CASTER: 09/21/19 1716 ADM IN [facility] [address] [id number]
--- NOTE | 2019-09-23 13:37 | PN ---
PATIENT:VIKTOR JACKSON MEDICAL RECORD: [id number] LOCATION:[facility] ADMISSION DATE: 08/29/19 PROGRESS NOTE DATE OF SERVICE: 09/19/2019 SUBJECTIVE: The patient's case was discussed with staff. She has no new complaint. OBJECTIVE: The patient is still waiting for word from the court and adult protective services. She was a little tearful about this today, which I think is not unreasonable given how frustrated she is. TRANSINT:[id number] Voice Confirmation ID: [id number] DOCUMENT ID: [id number] TREY MORGAN MD at 1337 CC: [id number] DICTATION DATE: 09/19/19 175 SENIOR WEB SERVICES DEVELOPER: 09/20/19 0228 ADM IN [address] [place] [address]
[2019-09-23 19:59] VITALS: BP 128/69
--- NOTE | 2019-09-24 00:59 | NUR ---
RECEIVED IN HALLWAY OUTSIDE OF NURSES STATION. CALM AND COOPERATIVE WITH CARE AND ASSESSMENT. ENCOURAGE TO EXPRESS NEEDS. REDIRECT AND REORIENT NEEDED. RESTING IN BED WITH EYES CLOSED AT THIS TIME. CONTINUE PLAN OF CARE
[2019-09-24 05:54] LABS: BASOPHILS 0.2 % (0-2); EOSINOPHILS 1.1 % (0-7); HEMOGLOBIN 9.1 g/dL (12-16); IMMATURE GRANULOCYTES 0.2 % (0-5); MCH 30.8 pg (26.0-34.0); MCHC 32.5 g/dL (31.0-37.0); MCV 94.9 fL (80.0-100.0); MEAN PLATELET VOLUME 9.9 fL (7.4-10.4); NEUTROPHILS 70.5 % (40-80); RBC 2.95 10x6/uL (4.00-5.40); RDW 14.8 % (11.5-14.5); WBC 6.6 10x3/uL (4.8-10.8)
[2019-09-24 06:23] LABS: PLATELET COUNT 251 10x3/uL (130-400)
[2019-09-24 08:56] VITALS: BP 106/66
--- NOTE | 2019-09-24 15:11 | PN ---
PATIENT:VIKTOR JACKSON MEDICAL RECORD: [id number] LOCATION:[facility] ADMISSION DATE: 08/29/19 PROGRESS NOTE DATE OF SERVICE: 09/22/2019 SUBJECTIVE: The patient's care was discussed with staff. The patient states that she does have a headache and her eye is hurting. The patient is sitting on the sofa. States that she has enjoyed reading her book. OBJECTIVE: General appearance is appropriate. Her orientation, she is alert to person, place, time, and situation. Her speech is soft, low tone, low volume. Her associations are loose. Her eye contact is good. Her judgment and insight is impaired. Her mood is depressed. Her affect is restricted. Her anxiety is mild. Her memory is poor. The patient does not appear to be attending any visual or auditory hallucinations. ASSESSMENT: No change from previous. PLAN: We will continue to monitor her degree of confusion and monitor her medications, stabilize her mood and her eating and her sleep patterns and work on discharge placement. Dictated By: Noemi Alamo APN I have interviewed/examined the above patient and agree with these documented findings. TRANSINT:[id number] Voice Confirmation ID: [id number] DOCUMENT ID: [id number] TREY MORGAN MD at 1511 at 1547 CC: [id number] DICTATION DATE: 09/22/191935 SOLE TACKER: 09/23/19 0733 [facility] [address] [place] [address]
--- NOTE | 2019-09-24 15:11 | PN ---
PATIENT:VIKTOR JACKSON MEDICAL RECORD: [id number] LOCATION:[facility] ADMISSION DATE: 08/29/19 PROGRESS NOTE DATE OF SERVICE: 09/23/2019 SUBJECTIVE: The patient's case was discussed with staff. She has no new complaint. OBJECTIVE: The patient is partially oriented. She has a euthymic mood. She has pretty limited insight about her situation and is anxious to be discharged. At this point, I do not have a place to send her. A couple of assisted living centers are looking at her. The problem is she is not able to afford this on her own and the number of Medicaid beds available is small. She has absolutely no support of any kind. She has been here for nearly a month and no one has called to check on her let alone come to visit her. She is not appropriate to live independently and she does need supervision. TRANSINT:[id number] Voice Confirmation ID: [id number] DOCUMENT ID: [id number] TREY MORGAN MD at 1511 CC: [id number] DICTATION DATE: 09/23/19 165 FOOD PREPARATION KITCHEN AIDE: 09/24/19 0401 ADM IN [facility] [address] [place] [address]
[2019-09-24 20:56] VITALS: BP 115/61
--- NOTE | 2019-09-24 23:06 | NUR ---
RECEIVED IN DINING AREA. WALKING ABOUT SOCIALIZING AT TIMES. CALM AND COOPERATIVE WITH ACRE AND ASSESSMENT. INTRUSIVE WITH PEERS AT TIMES. REDIRECT AND REORIENT NEEDED. RESTING IN BED WITH EYES CLOSED AT THIS TIME. CONTINUE PLAN OF CARE
--- NOTE | 2019-09-25 08:00 | NUR ---
PATIENT SITTING AND EATING BREAKFAST AT THIS TIME. PT HAS A COURT HEARING THIS A.M. WITH APS. PT IS ALERT AND ORIENTED TO PERSON, AND TIME. PT IS CONFUSED. REDIRECT AND REORIENT NEEDED. PT IS COMPLIANT WITH MEDS, VITALS AND ASSESSMENTS. PT AMBULATES AND FEEDS SELF. PT DOES LACK INSIGHT TO SITUATION. WILL CONT PLAN OF CARE.
--- NOTE | 2019-09-25 08:33 | NUR ---
PT LEFT AT THIS TIME TO COURT HEARING. PT LEFT WITH JOHNNY SOLANO AT THIS TIME NO DISTRESS NOTED AT THIS TIME.
--- NOTE | 2019-09-25 09:15 | PN ---
PATIENT:VIKTOR JACKSON MEDICAL RECORD: [id number] LOCATION:[facility] ADMISSION DATE: 08/29/19 PROGRESS NOTE DATE OF SERVICE: 09/24/2019 SUBJECTIVE: The patient's case was discussed with staff. She has no new complaint. OBJECTIVE: The patient is in good behavioral control with limited insight about her condition. She is still having some confusion and insists that she can live independently. ASSESSMENT: Dementia. PLAN: The patient is going to go to court tomorrow. I think this is very difficult case. She is not inappropriate for a care home, although I would admit she is higher functioning than the average patient there. On the other hand, she should not be living alone. The intermediate solutions that are usually available to most people are not available here and I will await and follow the directions of adult protective services and the court. TRANSINT:[id number] Voice Confirmation ID: [id number] DOCUMENT ID: [id number] TREY MORGAN MD at 0915 CC: [id number] DICTATION DATE: 09/24/19 1620 TRUST EVALUATION SUPERVISOR: 09/24/19 2350 ADM IN [facility] [address] [place] [address]
[2019-09-25 10:04] VITALS: BP 101/56
--- NOTE | 2019-09-25 10:20 | NUR ---
PATIENT RETURNED FROM COURT WITH JOHNNY SOLANO. NO DISTRESS NOTED.
--- NOTE | 2019-09-25 15:27 | NUR ---
PATIENT ALERT, QUIET MOOD, TEARFUL UPON RETURN FROM COURT EARLIER TODAY. SINCE HER RETURN, SHE HAS SPENT HER TIME READING A BOOK. NO BEHAVIORAL ISSUES NOTED. MEDS ADMIN PER ORDERS WITH COMPLETE MED COMPLIANCE NOTED. CONT POC DIRECTED.
--- NOTE | 2019-09-25 19:58 | NUR ---
PATIENT IS PLEASANT BUT DOES HAVE CONFUSION AT TIMES FOR EXAMPLE SHE WILL FORGET WHERE SHE HER ROOM IS BUT SHE IS EASILY REDIRECTED. COMPLIANT WITH MEDS. WILL FOLLOW POC
[2019-09-25 20:33] VITALS: BP 143/65
[2019-09-26 10:03] VITALS: BP 116/70
--- NOTE | 2019-09-26 11:22 | NUR ---
The patient is depressed and she acts like she does not feel well, she is couging and her voice is crackly. She ambulates independently. She is confused as she asks "Where is the bathroom" She has poor insight into her situation. Provide prescribed meds. The patient is compliant with meds. Continue POC.
--- NOTE | 2019-09-26 14:24 | NUR ---
Nutrition Follow-up: Diet: Regular PO intake: ~88% average x last 9 meals Last BM: 09/18/19. WT: 123.2# (09/22/19); Admit WT: 127.4# (08/29/19) Meds noted: fanny. Last reviewed. Recommend continue current diet. RD following.
--- NOTE | 2019-09-26 14:56 | PN ---
PATIENT:VIKTOR JACKSON MEDICAL RECORD: [id number] LOCATION:[facility] ADMISSION DATE: 08/29/19 PROGRESS NOTE DATE OF SERVICE: 09/25/2019 SUBJECTIVE: The patient's case was discussed with staff. She has no new complaint. OBJECTIVE: The patient went to court today. The process safety manager ordered her into assisted living. APS is going to work out those details. She is tearful about this and very upset and afraid she is going to have to be from her dog. This is a very sad, but she cannot live alone and she has been turned down for longterm placement by the [facility]. I am not sure how adult protective services are going to work this since assisted living centers are expensive, but I am awaiting their guidance. I am going to maintain her on current medicines. TRANSINT:[id number] Voice Confirmation ID: [id number] DOCUMENT ID: [id number] TREY MORGAN MD at 1456 CC: [id number] DICTATION DATE: 09/25/19 171 LIFE COACH: 09/25/19 2239 ADM IN [facility] [address] [place] [address]
[2019-09-26 20:00] VITALS: BP 117/53
--- NOTE | 2019-09-26 22:06 | NUR ---
PATIENT EASILY FORGETS WHERE HER ROOM IS HOWEVER IS EASILY REDIRECTED IN THE RIGHT DIRECTION. COMPLIANT WITH MEDS. WILL FOLLOW POC
[2019-09-27 09:08] VITALS: BP 116/63
--- NOTE | 2019-09-27 10:35 | NUR ---
Rebecca from APS asked me if I would speak to the patient about going to [facility] in [place] or [facility] in [place]. Spoke to the patient about each place and she said she would speak to them, but she didn't see any point going to live in [place]. The patient is under the assumption that she can take her dog with her and that her friend has her dog only temporarily. The patient is not comprehending what has been discussed with her regarding her living arrangements. Will speak to Volodymyr Montoya to assist the patient with understanding the living arrangement situation as she is unable to live in a home by herself any more due to her increased confusion.
[2019-09-27 20:06] VITALS: BP 113/69
--- NOTE | 2019-09-28 00:50 | NUR ---
B.) PT IS ALERT AND ORIENTED TO SELF AND SITUATION. SHE IS ABLE TO AMBULATE WITHOUT ASSIST. SHE IS CALM AND COOPERATIVE WITH STAFF AND PLEASANT WITH HER PEERS. I.) PROVIDED PM MEDICATIONS PRESCRIBED. REDIRECT. R.) COMPLIANT WITH ALL MEDICATIONS. EASY TO REDIRECT. P.) WILL CONTINUE TO MONITOR.
--- NOTE | 2019-09-28 07:05 | NUR ---
The patient is awake and alert she is ambulating in the hallway. She is pleasant. She is confused she is oriented to person and place, but she is forgetful. She has poor insight into her situation. Provide prescribed meds. The patient is compliant with meds. Continue POC.
--- NOTE | 2019-09-28 13:53 | PN ---
PATIENT:VIKTOR JACKSON MEDICAL RECORD: [id number] LOCATION:[facility] ADMISSION DATE: 08/29/19 PROGRESS NOTE DATE OF SERVICE: 09/27/2019 SUBJECTIVE: The patient's case was discussed with staff. She has no complaint. The patient was very friendly and conversive. VITAL SIGNS: This patient's general appearance is appropriate. Her orientation is alert to person, place; disoriented to time and situation. Her speech is soft, low tone, low volume. Her associations are loose. Her eye contact is fair. Her judgment and insight are impaired. Her thought and concentration is tangential and circumstantial. Her affect is restricted. Her anxiety is mild. Her memory is poor for remote events. The patient does not appear to be attending to any visual or auditory hallucinations. Her judgment and insight are poor. Impulsivity is high. The patient still reports that she wants to go home with her fur babies. Plan at this time, case management is working for placement, there is not enough medical reason to my understanding there is a alterations workroom clerk that had ordered assisted living; however, she does not have the finances for an assisted living with the memory unit related to her lack of resources. APS is involved. We will continue to monitor her mood, her tolerability to medications, and to keep the patient safe. Dictated By: Noemi Alamo APN I have interviewed/examined the above patient and agree with these documented findings. TRANSINT:[id number] Voice Confirmation ID: [id number] DOCUMENT ID: [id number] TREY MORGAN MD at 1658 at 1353 CC: [id number] DICTATION DATE: 09/27/19 180 SENIOR SALES COMPENSATION ANALYST: 09/28/19 0221 ADM IN [facility] [address] [place] [address]
--- NOTE | 2019-09-28 19:55 | NUR ---
RECEIVED IN DAYROOM. SITTING QUIETLY IN A RECLINER WITH PEERS AT HER SIDE. CALM AND COOPERATIVE WITH CARE AND ASSESSMENT. ENCOURAGE TO EXPRESS NEEDS. CONTINUES TO SIT CALMLY IN DAYROOM. CONTINUE PLAN OF CARE
[2019-09-28 20:29] VITALS: BP 121/60
--- NOTE | 2019-09-29 08:30 | NUR ---
The patient is awake and alert, she is pleasant, she is forgetful. She is oriented x3. The patient is ambulatory. She has poor short term memory and has poor insight into her situation. Provide prescribed meds. Redirect as needed. Continue POC.
[2019-09-29 10:16] VITALS: BP 122/62
--- NOTE | 2019-09-29 16:58 | PN ---
PATIENT:VIKTOR JACKSON MEDICAL RECORD: [id number] LOCATION:[facility] ADMISSION DATE: 08/29/19 PROGRESS NOTE DATE OF SERVICE: 09/26/2019 SUBJECTIVE: The patient's case was discussed with staff. She has no new complaint. OBJECTIVE: The patient is in good behavioral control with a euthymic mood. ASSESSMENT: Dementia. PLAN: At this point, we have not gotten guidance from the court and adult protective services. I think she is ready for discharge and would be happy to discharge her as soon as I have an appropriate setting. TRANSINT:[id number] Voice Confirmation ID: [id number] DOCUMENT ID: [id number] TREY MORGAN MD at 1658 CC: [id number] DICTATION DATE: 09/26/19 1513 HEALTHCARE CONSULTING MANAGER: 09/26/19 1755 ADM IN [facility] [address] [id number]
--- NOTE | 2019-09-29 17:00 | PN ---
PATIENT:VIKTOR JACKSON MEDICAL RECORD: [id number] LOCATION:AMANDA Wright ADMISSION DATE: 08/29/19 PROGRESS NOTE DATE OF SERVICE: 09/28/2019 SUBJECTIVE: The patient's case was discussed with staff. The patient has no new complaints. The patient is very friendly and conversive and pleasantly disoriented. Pt reports she wants to go home. OBJECTIVE: The patient's general appearance is appropriate. Her orientation is alert to person, disoriented to place, time and situation. Her speech is soft, low tone, low volume. Her associations are loose. Her eye contact is fair. Judgment and insight are impaired. Her thought and concentration is tangential. Her affect is restricted. Her anxiety is mild. Her memory is poor for remote events. The patient does not appear to be attending to any suicidal auditory hallucination. Her impulsivity is high. ASSESSMENT: No change in diagnosis. PLAN: Treatment plan reviewed, working on placement, monitoring the patient's degree of confusion, stabilize her mood and prepare for discharge. Dictated By: Noemi Alamo APN I have interviewed/examined the above patient and agree with these documented findings. TRANSINT:[id number] Voice Confirmation ID: [id number] DOCUMENT ID: [id number] TREY MORGAN MD at 1448 at 1700 CC: [id number] DICTATION DATE: 09/28/19 1447 WAREHOUSE PRODUCTION WORKER: 09/28/19 2214 ADM IN [id number] [place] [address]
--- NOTE | 2019-09-29 19:56 | NUR ---
RECEIVED IN DAYROOM WALKING AROUND SOCIALIZING. CALM AND COOPERATIVE WITH CARE AND ASSESSMENTS. ENCOURAGE TO EXPRESS NEEDS. WALING AROUND [place] OUTSIDE OF NURSES STATION AT THIS TIME. CONTINUE PLAN OF CARE.
[2019-09-30 08:29] VITALS: BP 105/69
--- NOTE | 2019-09-30 14:48 | PN ---
PATIENT:VIKTOR JACKSON MEDICAL RECORD: [id number] LOCATION:AMANDA Wright ADMISSION DATE: 08/29/19 PROGRESS NOTE DATE OF SERVICE: 09/29/2019 SUBJECTIVE: The patient's case was discussed with staff. The patient has no new complaints. The patient is very friendly, conversive, and pleasantly disoriented. OBJECTIVE: The patient's general appearance is appropriate. Orientation: Alert to person, place, disoriented to situation. Her speech is soft, low tone, low volume. Her associations are loose. Her eye contact is fair. Judgment and insight are impaired. Impulsivity is high. Her affect is restricted. Her thought and concentration is tangential. Her anxiety is mild. Her memory is poor for remote events. The patient does not appear to be attending to any auditory or visual hallucination or any suicidal ideation. The patient still reports she wants to go home and misses her fur babes. ASSESSMENT: No change in diagnosis. PLAN: Treatment plan reviewed. Working on placement, monitoring the patient's degree of confusion and stabilizing her mood. Dictated By: Noemi Alamo APN I have interviewed/examined the above patient and agree with these documented findings. TRANSINT:[id number] Voice Confirmation ID: [id number] DOCUMENT ID: [id number] TREY MORGAN MD at 1448 at 1236 CC: [id number] DICTATION DATE: 09/29/19 1553 LITIGATION ATTORNEY ASSOCIATE: 09/29/19 2341 ADM IN [address] [place] [address]
--- NOTE | 2019-09-30 20:05 | NUR ---
RECEIVED IN DINING ROOM AREA. WALKING ABOUT. CALM AND COOPERATIVE WITH CARE AND ASSESSMENT. ENCOURAGE TO EXPRESS NEEDS. SITTING QUIETLY IN DAYROOM AT THIS TIME. CONTINUE PLAN OF CARE
[2019-09-30 20:49] VITALS: BP 120/60
[2019-10-01 08:33] VITALS: BP 114/75
--- NOTE | 2019-10-01 15:04 | PN ---
PATIENT:VIKTOR JACKSON MEDICAL RECORD: [id number] LOCATION:[facility] ADMISSION DATE: 08/29/19 PROGRESS NOTE DATE OF SERVICE: 09/30/2019 SUBJECTIVE: The patient's case was discussed with staff. She has no new complaint. OBJECTIVE: The patient is demented. She is impaired, but not acutely dangerous. She is going to be maintained on current medicines and made to be discharged as soon as placement is arranged. The difficulties are obstacles associated with placing her are the same that have been documented numerous times. TRANSINT:[id number] Voice Confirmation ID: [id number] DOCUMENT ID: [id number] TREY MORGAN MD at 1504 CC: [id number] DICTATION DATE: 09/30/19 171 SUPERVISOR METAL FURNITURE ASSEMBLY: 09/30/19 2356 ADM IN [facility] [address] [place] [address]
--- NOTE | 2019-10-01 19:56 | NUR ---
RECEIVED IN DAYROOM. WALKING ABOUT SOCIALIZING. CALM AND COOPERATIVE WITH CARE AND ASSESSMENT. ENCOURAGE TO EXPRESS NEEDS. SITTING IN CHAIR WITH PEERS AT HER SIDE AT THIS TIME. CONTINUE PLAN OF CARE
[2019-10-01 20:32] VITALS: BP 108/65
--- NOTE | 2019-10-02 08:30 | NUR ---
RECEIVED IN HALLWAY OUTSIDE OF NURSES STATION. CALM AND COOPERATIVE WITH CARE AND ASSESSMENT. PLEASANT. NO BEHAVIORS. REDIRECT AND REORIENT NEEDED. WAITING FOR BREAKFAST AT THIS TIME. CONTINUE PLAN OF CARE.
[2019-10-02 10:21] VITALS: BP 118/61
--- NOTE | 2019-10-02 13:50 | PN ---
PATIENT:VIKTOR JACKSON MEDICAL RECORD: [id number] LOCATION:[facility] ADMISSION DATE: 08/29/19 PROGRESS NOTE DATE OF SERVICE: 10/01/2019 SUBJECTIVE: The patient's case was discussed with staff. She has no new complaint. OBJECTIVE: The patient denies intent to harm herself or others. She is quite impaired. A couple of the folks from assisted living centers have come to see her. She said she does not want to be there. They view her as elopement risk and lability and declined her. At this point, I am at a loss of suggestions about where she can go. I do not think she is being deliberately manipulative. She is just too impaired. She does not even remember the conversation she has had with some of the facilities. TRANSINT:[id number] Voice Confirmation ID: [id number] DOCUMENT ID: [id number] TREY MORGAN MD at 1350 CC: [id number] DICTATION DATE: 10/01/19 1546 STEWARD/STEWARDESS SECOND: 10/01/19 1812 ADM IN [facility] [address] [place] [address]
--- NOTE | 2019-10-02 20:56 | NUR ---
RECEIVED IN HALLWAY OUTSIDE OF NURSES STATION. CALM AND COOPERATIVE WITH CARE AND ASSESSMENT. FORGETFUL AT TIMES. NO BEHAVIORS. REDIRECT AND REORIENT NEEDED. GETTING READY FOR BED AT THIS TIME. CONTINUE PLAN OF CARE.
[2019-10-02 21:59] VITALS: BP 135/79
--- NOTE | 2019-10-03 09:01 | PN ---
PATIENT:VIKTOR JACKSON MEDICAL RECORD: [id number] LOCATION:[facility] ADMISSION DATE: 08/29/19 PROGRESS NOTE DATE OF SERVICE: 10/02/2019 SUBJECTIVE: The patient's case was discussed with staff. She has no new complaint. OBJECTIVE: The patient is partially oriented. Her mood is euthymic. She has no thoughts of harming herself or others and is tolerating her medicines well. ASSESSMENT: Dementia. PLAN: The patient is ready for discharge. She no longer meets inpatient treatment criteria; however, there are discharge issues that prevent her from leaving the hospital. These have been documented extensively, I see no reason to repeat them here. A treatment team today, there was some encouraging news that perhaps, a facility has been found that will give her a discount on the rent as well as allow her to keep her dog if she is accepted there. I will send her as soon as we get that information. TRANSINT:[id number] Voice Confirmation ID: [id number] DOCUMENT ID: [id number] TREY MORGAN MD at 0901 CC: [id number] DICTATION DATE: 10/02/19 1509 ASSISTIVE TECHNOLOGY TRAINER: 10/02/19 2335 ADM IN [facility] [address] [place] [address]
--- NOTE | 2019-10-03 11:28 | NUR ---
Nutrition Follow-up: Diet: Regular PO intake: ~96% average x last 9 meals Last BM: 09/29/19. WT: 123.3# (09/29/19); Admit WT: 127.4# (08/29/19) Meds noted: senokot. No new labs. Weight loss of -4.1# noted. However, patient is with adequate PO intake at this time. Will continue monitoring. RD following.
[2019-10-03 11:40] VITALS: BP 118/62
--- NOTE | 2019-10-03 12:57 | NUR ---
PATIENT CALM AND ALERT, COOPERATIVE, TEARFUL AT TIMES, MEDS ADMIN PER ORDERS WITH COMPLETE MED COMPLIANCE NOTED. CONT POC DIRECTED.
[2019-10-03 20:44] VITALS: BP 111/62
--- NOTE | 2019-10-03 22:06 | NUR ---
B.) PT IS ALERT AND ORIENTED TO SELF AND SITUATION AT TIMES. SHE IS ABLE TO MAKE HER NEEDS KNOWN. SHE IS ABLE TO AMBULATE WITHOUT ASSIST. SHE IS CALM AND COOPERATIVE WITH STAFF. SHE IS RECEIVED IN THE DAYROOM SOCIALIZING WITH HER PEERS. I.) PROVIDED PM MEDICATIONS PRESCRIBED. REDIRECT NEEDED. R.) COMPLIANT WITH ALL MEDICATIONS. EASY TO REDIRECT. P.) WILL CONTINUE TO MONITOR.
[2019-10-04 10:29] VITALS: BP 121/67
--- NOTE | 2019-10-04 14:07 | NUR ---
ALERT, CALM, COOPERATIVE, MED COMPLIANT, NO ADVERSE BEHAVIORS NOTED. CONT POC DIRECTED.
[2019-10-04 20:00] VITALS: BP 123/64
--- NOTE | 2019-10-05 00:24 | NUR ---
PATIENT IS PLEASANT, HELPFUL WITH OTHER PATIENT, INTERACTS WELL WITH EVERYONE, SHE SEEMS TO BECOME INCREASINGLY MORE CONFUSED, SHE IS NOT FORGETFUL WITH THE TASK AT HAND BUT IF SHE WALKS AWAY FROM THE TASK SHE CAN NOT REMEMBER WHAT SHE WAS DOING. COMPLIANT WITH MEDS.
--- NOTE | 2019-10-05 08:01 | NUR ---
The patient is pleasant and she is calm. She is oriented to person and place. She has poor insight into her situation. She ambulates independently. Provide prescribed meds. The patient is compliant with meds. Continue POC.
[2019-10-05 10:46] VITALS: BP 120/71
--- NOTE | 2019-10-05 13:00 | PN ---
PATIENT:VIKTOR JACKSON MEDICAL RECORD: [id number] LOCATION:[facility] ADMISSION DATE: 08/29/19 PROGRESS NOTE DATE OF SERVICE: 10/04/2019 DATE OF SERVICE: 10/04/2019 SUBJECTIVE: The patient's case was discussed with staff. The patient has no complaints. OBJECTIVE: The patient is impaired. Her general appearance is appropriate to environment. Her orientation, she is alert to person, place and intermittently to place, time and situation. Her speech is soft, low tone, low volume. Her associations are loose. Her eye contact is good. Her judgment and insight is impaired and she is impulsive. Her thought and concentration, the patient is distracted. Her mood is stable. Her affect is restrictive. Her anxiety is mild. Her memory is poor for remote and recent. She does not appear to be attending to visual or auditory hallucinations. ASSESSMENT: No change in diagnosis. PLAN: The patient is to be preparing for discharge to [facility]. Dictated By: Noemi Alamo APN I have interviewed/examined the above patient and agree with these documented findings. TRANSINT:[id number] Voice Confirmation ID: [id number] DOCUMENT ID: [id number] TREY MORGAN MD at 1443 at 1300 CC: [id number] DICTATION DATE: 10/04/19 1303 CONTEMPORARY OR MODERN DANCER: 10/04/19 1448 ADM IN [facility] [address] [place] [address]
--- NOTE | 2019-10-05 16:23 | NUR ---
The patient c/o a headache and rates it 6/10. Tylenol 500 mg po given.
[2019-10-05 20:48] VITALS: BP 129/59
--- NOTE | 2019-10-05 20:59 | NUR ---
PATIENT SITTING CALMLY IN DAYROOM AT CHANGE OF SHIFT, INTERACTS WELL WITH ALL PATIENTS AND STAFF, COMPLIANT WITH MEDS, HOWEVER SHE BECOMES CONFUSED SOON "THE TASK AT HAND" IS NOT IN FRONT OF HER, IF SHE WALKS AWAY FROM THE "TASK AT HAND" SHE HAS TO BE REMINDED WHERE HER ROOM IS, WHAT SHE WAS INTENDING TO DO. WILL FOLLOW POC
--- NOTE | 2019-10-06 09:15 | NUR ---
RECEIVED IN HALLWAY OUTSIDE OF NURSES STATION. CALM AND COOPERATIVE WITH CARE AND ASSESSMENT. HAS BEEN ARGUMENTATIVE WITH STAFF AT TIMES THIS MORNING. REDIRECT AND REORIENT NEEDED. SITTING IN DAYROOM WITH PEERS AT THIS TIME. CONTINUE PLAN OF CARE.
[2019-10-06 10:30] VITALS: BP 118/73
--- NOTE | 2019-10-06 14:50 | PN ---
PATIENT:VIKTOR JACKSON MEDICAL RECORD: [id number] LOCATION:[facility] ADMISSION DATE: 08/29/19 PROGRESS NOTE DATE OF SERVICE: 10/05/2019 SUBJECTIVE: The patient's case was discussed with staff. She has no new complaint. OBJECTIVE: The patient's general appearance is appropriate. The patient's orientation is ebbs and flows. Her speech is soft, low tone, low volume. Her associations are intermittently intact. Her eye contact is good. Her judgment and insight is impaired. Impulsivity is high. Her mood is stable. Her affect is restricted. ASSESSMENT: Dementia. PLAN: The patient will be transitioned out of the hospital on Monday. Dictated By: Noemi Alamo APN I have interviewed/examined the above patient and agree with these documented findings. TRANSINT:[id number] Voice Confirmation ID: [id number] DOCUMENT ID: [id number] TREY MORGAN MD at 1443 at 1450 CC: [id number] DICTATION DATE: 10/05/19 1300 MERCANTILE AGENT: 10/05/19 1650 ADM IN [facility] [address] [place] [id number]
[2019-10-06 20:00] VITALS: BP 125/62
--- NOTE | 2019-10-07 01:50 | NUR ---
B) Patient is alert and oriented to person, place and time, she just can not remember where her room is, I) Administered scheduled medications as ordered R) medications compliant, social with peers and staff, helpful with other patients, P) Continue plan of care.
[2019-10-07 09:13] VITALS: BP 118/64
--- NOTE | 2019-10-07 14:43 | PN ---
PATIENT:VIKTOR JACKSON MEDICAL RECORD: [id number] LOCATION:[facility] ADMISSION DATE: 08/29/19 PROGRESS NOTE DATE OF SERVICE: 10/03/2019 SUBJECTIVE: The patient's case was discussed with staff. She has no new complaint. OBJECTIVE: The patient is impaired cognitively. She has no short term memory, but there is no change in her underlying condition. ASSESSMENT: Dementia. PLAN: The patient will be transitioned out of the hospital on Monday. Apparently, that is soonest arrangements can be made at the assisted living center for her to go there. TRANSINT:[id number] Voice Confirmation ID: [id number] DOCUMENT ID: [id number] TREY MORGAN MD at 1443 CC: [id number] DICTATION DATE: 10/03/19 1312 STABLE HAND: 10/03/19 1403 ADM IN [place] [id number] [place] [id number]
--- NOTE | 2019-10-07 14:43 | PN ---
PATIENT:VIKTOR JACKSON MEDICAL RECORD: [id number] LOCATION:[facility] ADMISSION DATE: 08/29/19 PROGRESS NOTE DATE OF SERVICE: 10/06/2019 SUBJECTIVE: The patient's case was discussed with staff. She has no new complaints. She is conversing among the other patients. OBJECTIVE: The patient's general appearance is appropriate. The patient's orientation ebbs and flows. Her speech is soft, low tone, and low volume. Her associations are intermittently intact. Her eye contact is good and her judgment and insight is impaired. Her impulsivity is moderate to high. Her mood is stable. Her affect is restricted. ASSESSMENT: No change in diagnosis. PLAN: The plan will be to transition the patient out of the hospital to ensure the patient is tolerating on her medication and her mood is stabilized. Dictated By: Noemi Alamo APN I have interviewed/examined the above patient and agree with these documented findings. TRANSINT:[id number] Voice Confirmation ID: [id number] DOCUMENT ID: [id number] TREY MORGAN MD at 1443 at 1434 CC: [id number] DICTATION DATE: 10/06/19 1450 VERTICAL CONTOUR BAND SAW OPERATOR: 10/06/194 ADM IN [place] [id number] [place] [address]
--- NOTE | 2019-10-07 22:48 | NUR ---
B.) PT IS ALERT AND ORIENTED TO SELF AND SITUATION. SHE IS ABLE TO AMBULATE WITHOUT ASSIST AND MAKE HER NEEDS KNOWN. SHE IS CALM AND COOPERATIVE WITH STAFF AND PEERS. I.) PROVIDED PM MEDICATIONS PRESCRIBED. REDIRECT NEEDED. R.) COMPLIANT WITH ALL MEDICATIONS. EASY TO REDIRECT. P.) WILL CONTINUE TO MONITOR.
[2019-10-08 06:43] VITALS: BP 110/59
[2019-10-08 10:10] VITALS: BP 111/72
--- NOTE | 2019-10-08 14:43 | PN ---
PATIENT:VIKTOR JACKSON MEDICAL RECORD: [id number] LOCATION:[facility] ADMISSION DATE: 08/29/19 PROGRESS NOTE DATE OF SERVICE: 10/07/2019 SUBJECTIVE: The patient's case was discussed with staff. She has no new complaint. OBJECTIVE: The patient's condition is unchanged. She is appropriate for discharge. ASSESSMENT: Dementia. PLAN: Apparently, there is some other financial obstacles that have not been cleared up. Soon as they are, she can be transitioned out of the hospital. TRANSINT:[id number] Voice Confirmation ID: [id number] DOCUMENT ID: [id number] TREY MORGAN MD at 1443 CC: [id number] DICTATION DATE: 10/07/19 1637 EXPEDITER SERVICE ORDER: 10/07/[address] [facility] [address] [place] [address]
[2019-10-08 20:26] VITALS: BP 108/49
--- NOTE | 2019-10-08 22:33 | NUR ---
B.) PT IS ALERT AND ORIENTED TO SELF AND SITUATION. SHE IS ABLE TO AMBULATE WITHOUT ASSIST AND MAKE HER NEEDS KNOWN. SHE HELPS OUT WITH OTHER PTS CARE. SHE IS CALM AND COOPERATIVE WITH STAFF AND PLEASANT AND SOCIAL WITH HER PEERS. I.) PROVIDED PM MEDICATIONS. REDIRECT IF NEEDED. R.) COMPLIANT WITH ALL MEDICATIONS. EASY TO REDIRECT. P.) WILL CONTINUE TO MONITOR
[2019-10-09 09:53] VITALS: BP 103/62
--- NOTE | 2019-10-09 12:15 | NUR ---
PT SITTING IN CHAIR READING A BOOK. NO BEHAVIORS NOTED. COMPLIANT WITH MEDS, VITALS AND ASSESSMENTS. WILL CONT PLAN OF CARE.
--- NOTE | 2019-10-09 14:06 | PN ---
PATIENT:VIKTOR JACKSON MEDICAL RECORD: [id number] LOCATION:[facility] ADMISSION DATE: 08/29/19 PROGRESS NOTE DATE OF SERVICE: 10/08/2019 SUBJECTIVE: The patient's case was discussed with staff. She has no new complaint. OBJECTIVE: The patient denies that she would seek to harm herself or others. She is tolerating her medicines well. ASSESSMENT: No change in diagnoses. PLAN: The patient will be discharged as soon as those arrangements can be made. Documentation about the ongoing obstacles is being documented by the program services planner psychosocial rehabilitation counselor. I see no reason to repeat it. She is ready for discharge. She has been ready for discharge. I have no place to discharge her, but will do so as soon as one becomes available. TRANSINT:[id number] Voice Confirmation ID: [id number] DOCUMENT ID: [id number] TREY MORGAN MD at 1406 CC: [id number] DICTATION DATE: 10/08/19 1512 CLAY PRODUCTS GLAZER: 10/08/19 1526 ADM IN [place] [address] [place] [address]
--- NOTE | 2019-10-09 19:45 | NUR ---
B)RECEIVED PATIENT AMBULATORY ON THE UNIT. PREOCCUPIED WITH GOING HOME. ASKING FOR A PEN OR PENCIL BECAUSE SHE HAS TO MAKE A LIST OF THINGS SHE HAS GOT TO DO WHEN SHE LEAVES HERE. RELATES SHE IS GOING HOME FIRST TO PACK AND GET HER FUR BABY BEFORE GOING TO [place]. 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 WORRIES EXCESSIVELY ABOUT FINANCES. CONFUSED AND DISORIENTED. CAPABLE OF CARRYING ON A CONVERSATION HOWEVER IS VERY FORGETFUL AND WILL GO THE WRONG DIRECTION TO GO THE HER ROOM AND WILL HAVE TO BE REDIRECTED. I)ADMINISTER MEDS AND MONITOR COMPLIANCE. REORIENT NEEDED. R)MED COMPLIANT. REORIENTS HOWEVER DOES NOT RETAIN INFORMATION AND BECOMES FRUSTRATED. P)CONTINUE POC AND PROVIDE SAFE ENVIRONMENT.
[2019-10-09 21:40] VITALS: BP 125/62
[2019-10-10 08:02] VITALS: BP 117/72
--- NOTE | 2019-10-10 10:44 | NUR ---
Team Treatment Review Diet: Regular Diet PO intake: 100% x 9 meals BM x 1 on 10/04 Admit Wt (08/29): 127 lbsWt (on 10/05): 125 lbs Significant Meds: Vit C/Ferrous Sulf/Folic Acid, Senokot, Folic Acid, KCl Significant Labs: No new labs recorded since 08/29 Contine current diet as tolerated Will continue to monitor closely. Will monitor po intake, diet changes, nutrition-related labs/meds, BM frequency, wt changes, and skin integrity Clinical Dietitian Following
--- NOTE | 2019-10-10 10:50 | NUR ---
The patient is interacting with other patients and staff, she is participating in groups and activities this am and leading some of the dances. She is smiling and joking and showing us some dance moves. Provide prescribed meds. The patient is compliant with meds. Continue POC.
--- NOTE | 2019-10-10 16:18 | PN ---
PATIENT:VIKTOR JACKSON MEDICAL RECORD: [id number] LOCATION:[facility] ADMISSION DATE: 08/29/19 PROGRESS NOTE DATE OF SERVICE: 10/09/2019 SUBJECTIVE: The patient's case was discussed with staff. She has no new complaint. OBJECTIVE: The patient is ready for discharge, but her placement cannot be finalized until some additional paperwork is completed and adult protective services is supposed to get some financial statements to them. ASSESSMENT: Dementia. PLAN: The patient will be discharged as soon as placement is arranged. TRANSINT:[id number] Voice Confirmation ID: [id number] DOCUMENT ID: [id number] TREY MORGAN MD at 1618 CC: [id number] DICTATION DATE: 10/09/19 1437 ENVIRONMENTAL COMPLIANCE SPECIALIST: 10/09/19 1633 ADM IN [facility] [address] [place] [address]
[2019-10-10] MEDS ORDERED: CELEXA20 MG PO (16:31)
[2019-10-10] MEDS ORDERED: GEMFIBROZIL600 MG PO (16:31)
[2019-10-10] MEDS ORDERED: DONEPEZIL HCL5 MG PO (16:31)
[2019-10-10] MEDS ORDERED: LISINOPRIL10 MG PO (16:31)
[2019-10-10] MEDS ORDERED: FEXOFENADINE HC60 MG PO (16:31)
[2019-10-10] MEDS ORDERED: Senokot TAB PO (16:32)
[2019-10-10] MEDS ORDERED: VITAMIN C PO (16:32)
[2019-10-10] MEDS ORDERED: SYNTHROID88 MCG PO (16:32)
[2019-10-10] MEDS ORDERED: FOLIC ACID1 MG PO (16:32)
[2019-10-10 20:56] VITALS: BP 110/59
--- NOTE | 2019-10-10 22:14 | NUR ---
PATIENT IS CONFUSED, COMPLIANT WITH MEDS, FORGETS UNIT RULES ALL THE TIME, COMPLIANT WITH MEDS, WILL FOLLOW POC
--- NOTE | 2019-10-11 07:40 | NUR ---
Called [facility] and called report to Mony. Mony said that calling medications to [facility] is fine. Faxed the d/c and medication list to Mony and she said she will relay the paperwork to the assisted living personnel. A hard copy of health summary, med. list, and d/c order are in an envelope to give to the after school driver. Mony also said that she understood that the after school driver is supposed to pick her up at 1330 today.
[2019-10-11 08:22] VITALS: BP 102/61
--- NOTE | 2019-10-11 14:08 | NUR ---
The [facility] horse and wagon driver came and picked the patient up to take her to [facility]. The patient's paperwork is sent with the horse and wagon driver. The patient's belongings from ED safe are brought to the patient and accounted. She is packed and ready to go. The patient is now d/c'd from [facility].
--- NOTE | 2019-10-12 14:34 | PN ---
PATIENT:VIKTOR JACKSON MEDICAL RECORD: [id number] LOCATION:[facility] ADMISSION DATE: 08/29/19 PROGRESS NOTE DATE OF SERVICE: 10/11/2019 DATE OF SERVICE: 10/11/2019 SUBJECTIVE: The patient's case was discussed with staff. The patient is conversive and she states that she is looking forward to her new place. She is excited about being able to paint and also that she is able to bring her dog and looks forward to her new home. OBJECTIVE: The patient is alert to person, place, time and situation. Her speech is soft, low tone, low volume. Her associations are moderately intact. Her eye contact is fair. Her judgment and insight is impaired. Her mood is slightly depressed. Affect is restricted. No psychomotor retardation. Her anxiety is mild. Her memory has intermittent periods of clarity. The patient does not appear to be attending to any visual or auditory hallucinations. Her judgment is fair. Impulsivity is moderate. ASSESSMENT: No change in diagnosis. PLAN: The patient is pending discharge today. Dictated By: Noemi Alamo APN I have interviewed/examined the above patient and agree with these documented findings. TRANSINT:[id number] Voice Confirmation ID: [id number] DOCUMENT ID: [id number] TREY MORGAN MD at 1454 at 1434 CC: [id number] DICTATION DATE: 10/11/19 1254 PAINTER ORDNANCE: 10/11/19 1828 DIS IN 10/11/19 [facility] [address] [place] [address]
== END 2019-10-11 14:10 | disposition home or self-care (01) | DRG 57 ==
LOC: D.PSYCH 10:10
PROVIDERS: Family Medicine; Psychiatry & Neurology Psychiatry; ADMIT Psychiatry & Neurology Psychiatry; ATTEND Psychiatry & Neurology Psychiatry
DX: G30.1 Alzheimer's disease with late onset (principal); F01.51 Vascular dementia, unspecified severity, with behavioral disturbance; F02.81 Dementia in other diseases classified elsewhere, unspecified severity, with behavioral disturbance; Z68.1 Body mass index [BMI] 19.9 or less, adult; F33.1 Major depressive disorder, recurrent, moderate; F10.97 Alcohol use, unspecified with alcohol-induced persisting dementia; E78.1 Pure hyperglyceridemia; D50.8 Other iron deficiency anemias; R63.0 Anorexia; K59.00 Constipation, unspecified; K11.20 Sialoadenitis, unspecified; Z87.891 Personal history of nicotine dependence

== ENCOUNTER 2019-12-13 15:29 | Inpatient (IN) | payer MEDICARE, OTHER ==
[~2019-12-13 15:29] MED LIST: CELEXA20 MG PO; DONEPEZIL HCL5 MG PO; FERROUS SULFAT325 MG PO; FEXOFENADINE HC60 MG PO; FOLIC ACID1 MG PO; GEMFIBROZIL600 MG PO; K-DUR20 MEQ PO; LISINOPRIL10 MG PO; MECLIZINE HCL25 MG PO; SYNTHROID88 MCG PO; Senokot TAB PO; VITAMIN C PO
--- NOTE | 2019-12-13 16:23 | NUR ---
The patient is admitted to custodial from [facility] because apparently she has been having severe mood swings where she is beginning to yell at staff. She is very irritable and she believes everyone is doing her wrong. The staff at [facility] say she is vascillating between crying and then screaming. She is not sleeping and she is not eating. She is constantly telling the staff over at [facility] that she is not getting her antidepressants, but according to her MAR from them she has been taking them daily. She does not know why she is here she thought she was here for a couple medications. The patient has poor insight into her situation, she has poor short term memory. Her purse is at the nurses station. Will monitor her behavior.
[2019-12-13 16:35] VITALS: BP 127/60; BMI 21.4
[2019-12-13 17:10] LABS: BASOPHILS 0.8 % (0-2); EOSINOPHILS 4.1 % (0-7); HEMATOCRIT 35.3 % (36.0-48.0); HEMOGLOBIN 11.4 g/dL (12-16); IMMATURE GRANULOCYTES 0.2 % (0-5); LYMPHOCYTES 27.1 % (15-50); MCH 27.5 pg (26.0-34.0); MCHC 32.3 g/dL (31.0-37.0); MCV 85.3 fL (80.0-100.0); MEAN PLATELET VOLUME 9.1 fL (7.4-10.4); MONOCYTES 11.8 % (2-11); RBC 4.14 10x6/uL (4.00-5.40); RDW 13.3 % (11.5-14.5); WBC 5.1 10x3/uL (4.8-10.8)
[2019-12-13 17:29] LABS: PLATELET COUNT 321 10x3/uL (130-400)
[2019-12-13 18:14] LABS: ALBUMIN 4.3 g/dL (3.4-5.0); ANION GAP 13.9 mmol/L (8-16); BILIRUBIN - TOTAL 0.2 mg/dL (0.2-1.3); CARBON DIOXIDE 24.1 mmol/L (21.0-32.0); CHOL - HDL RATIO 3.6 ratio (2.3-4.1); CREATININE - SERUM 0.9 mg/dL (0.6-1.3); LDL-HDL RATIO 2.3 ratio (1.5-3.5); PROTEIN - SERUM 7.6 g/dL (6.4-8.2); THYROID STIMULATING HORMONE 0.65 uIU/mL (0.36-3.74)
[2019-12-13 20:18] VITALS: BP 121/63
--- NOTE | 2019-12-14 01:20 | NUR ---
RECEIVED PATIENT SITTING IN DINING AREA BY HERSELF READING A BOOK, SHE IS TEARFUL AND SAYS THAT SHE IS HERE BECAUSE SHE GOT SMART WITH SOMEONE AT THE [facility] BECAUSE THEY GOT SMART WITH HER AND SHE IS OUT OF HER MEDS AND SHE IS EMOTIONAL NOW. SHE IS CONFUSED WELL, SHE ASKED TO GO TO HER ROOM AND SHE WAS ALLOWED TO GO TO HER ROOM AND THEN SHE WANTED TO GO RIGHT BACK TO THE DAYROOM AND COULDN'T REMEMBER ASKING TO GO TO HER ROOM TO BEGIN WITH. WILL FOLLOW POC
[2019-12-14 09:19] VITALS: BP 145/75
--- NOTE | 2019-12-14 10:12 | NUR ---
The patient is awake and alert, she is nervous and anxious this am. She is worried about her little dog. The patient is crying and she wonders how long she will have to be here. Explained to her that it will be here for at least the weekend to adjust her medications. Provide prescribed. The patient has not taken any am meds yet. Continue POC.
[2019-12-14 10:40] VITALS: Wt 65.5 kg
--- NOTE | 2019-12-14 21:06 | NUR ---
RECEIVED PATIENT IN DINING AREA WITH OTHER RESIDENTS, SHE HAS CONFUSION, NOT TEARFUL AT THIS TIME, SHE SEEMS TO BE "MOTHER HEN" TO SOME OF THE RESIDENTS AT TIMES AND WANTS TO "RECOMMEND" HOW TO TAKE CARE OF OTHERS. COMPLIANT WITH MEDS. WILL FOLLOW POC
--- NOTE | 2019-12-15 08:38 | PSY ---
PATIENT NAME:VIKTOR JACKSON MEDICAL RECORD: [id number] : 49 LOCATION:[facility]9 ADMISSION DATE: 12/13/19 ACCOUNT: [id number] PSYCHIATRIC EVALUATION DATE OF EVALUATION: 12/14/19 IDENTIFYING DATA: The patient is a 74-year-old female who appears her stated age. She was admitted from [facility]. HISTORY OF PRESENT ILLNESS: The patient reports that I talked back to someone in the entry way when I could not find someone and something, I want to go back, I was out of my antidepressants, they had stopped giving them, you know my mother's side had a history of depression, that what we called it the Cook's curse. I have been on antidepressants for many years. I really love it over there at [facility] and I want to go back. It was reported that the patient has had increase in agitation and difficulty redirecting over the last 2 weeks. The patient has been increasingly with aggressive behaviors towards staff and other residents. PAST PSYCHIATRIC HISTORY: The patient has been a patient here on long term. Has had a history of depression, dementia, anxiety, alcohol use disorder, major depression. The patient does report that she has a history of alcohol use. The patient denied any trauma. ROS: Systems reviewed, PAST MEDICAL HISTORY: Has been hypertension, anorexia. FAMILY HISTORY: The patient is a poor historian regarding her family history. ALLERGIES: The patient has no known allergies. CURRENT MEDICATIONS: Aricept 5 mg every bedtime, gemfibrozil 600 mg b.i.d. before meals, lisinopril 10 mg p.o. daily, citalopram 20 mg p.o. daily, Senokot 1 tab p.o. b.i.d., Synthroid 88 mcg p.o. daily, Vitamin C 500 mg p.o. b.i.d., Folic acid 1 mg. 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 She is at least 20 years. She states she has no children. She enjoys art. All her relatives live in [place], which are nieces and nephews, and a nephew is her durable power of privacy attorney and she now resides at [facility] apartment, states she enjoys that. MENTAL STATUS EXAM: The patient's general appearance is mildly disheveled. The patient is alert and oriented to person. The patient is disoriented to place, time and situation. The patient's speech is disorganized. Her tone is low volume. Her associations are loose. Her eye contact is good. Her judgment is impaired and her impulsivity is high. She has tangential thoughts. Mood is depressed, anxious, easily agitated. Her affect is flat, narrow in range. No tremors noted. Anxiety is moderate. Memory is poor for both recent and remote events. The patient does not appear to be attending to either visual or auditory hallucinations. The patient does not appear to be suicidal or homicidal. 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 AXIS II: Cluster C personality trait. AXIS III: Hypertension, hypothyroidism. AXIS IV: Moderate. AXIS V: Global assessment of functioning is 40. PLAN: At this time, we will admit the patient. We will continue to reevaluate patient for cognitive mood stabilization. We are admitting her for her aggressive agitation and confused behaviors associated with her dementing illness. We will comprehensively evaluate her from both a medical, psychological, and social standpoint. We will treat her with both mood stabilizing and memory enhancing medication. Her long-term prognosis is guarded. Dictated By: Noemi Alamo APN I have interviewed/examined the above patient and agree with these documented findings. TRANSINT:[id number] Voice Confirmation ID: [id number] DOCUMENT ID: [id number] Dictated By: NOEMI ALAMO I have interviewed/examined the above patient and agree with these documented findings. TREY MORGAN MD at 1505 at 0838 CC: [id number] DICTATION DATE: 12/14/19 1350 PRIVATE SECTOR EXECUTIVE: 12/14/[address] [facility] [address] [place] [address]
--- NOTE | 2019-12-15 13:47 | NUR ---
PT IS AWAKE AND ALERT. CALM AND COOPERATIVE WITH ASSESSMENT. PT IS VERY ANXIOUS AND NERVOUS AT THIS TIME. PREDCRIBED MEDS PROVIDED PER ORDER. MED COMPLIANT. REDIRECT AND REORIENT NEEDED. WILL CPOC.
--- NOTE | 2019-12-15 20:10 | NUR ---
RECEIVED IN DAYROOM. SITTING IN A CHAIR SOCIALIZING WITH PEERS AT TIMES. CALM AND COOPERATIVE WITH CARE AND ASSESSMENT. NOT YELLING OUT. REDIRECT AND REORIENT NEEDED. CONTINUES TO SIT CALMLY IN DAYROOM. CONTINUE PLAN OF CARE.
--- NOTE | 2019-12-16 10:24 | NUR ---
The patient is awake and alert, she is flat to blunted in affect she is withdrawn, but interacts with other patients at times. She has not cried this am or asked when she is leaving yet. She ambulates and performs ADL's independently. Provide prescribed meds. The patient is compliant with meds. Continue POC.
--- NOTE | 2019-12-16 10:47 | NUR ---
The patient c/o a headache and neck pain, rates it 8/10, she says "I have some vertebrae out of place, I need an adjustment." Motrin 400 mg po given. See MAR.
--- NOTE | 2019-12-16 11:35 | NUR ---
The patient says she still has a h/a, but Latesha MADDEN is providing a group and the patient is trying to get out of it as she prefers to isolate, but Latesha is persistant to encourage her to participate.
--- NOTE | 2019-12-16 20:17 | NUR ---
RECEIVED IN DAYROOM. SITTING CALMLY WITH PEERS AT HER SIDE. SOCIAL. CALM AND COOPERATIVE WITH CARE AND ASSESSMENT. NOT YELLING OUT. REDIRECT AND REORIENT NEEDED. CONTINUES TO SIT CALMLY WITH PEERS. CONTINUE PLAN OF CARE.
[2019-12-17 07:13] LABS: RAPID PLASMA REAGIN Non Reactive (Non Reactive)
--- NOTE | 2019-12-17 09:26 | NUR ---
Nutrition Follow-up: Diet: Regular PO intake: 75-100% x all meals Last BM: 12/14/19. WT: 144# (12/15/19); Admit WT: 145# (12/13/19) Meds and labs reviwed. Recommend continue current diet. RD following.
--- NOTE | 2019-12-17 13:07 | PN ---
PATIENT:VIKTOR JACKSON MEDICAL RECORD: [id number] LOCATION:[facility]ANDA [facility]ender112 ADMISSION DATE: 12/13/19 PROGRESS NOTE DATE OF SERVICE: 12/16/2019 SUBJECTIVE: The patient's case was discussed with staff. She has no new complaint. OBJECTIVE: The patient is partially oriented. She denies that she would seek to harm herself or others. She is calm and cooperative. ASSESSMENT: Dementia. PLAN: Current medicines have been reviewed and will be maintained. Her long-term prognosis is guarded. TRANSINT:[id number] Voice Confirmation ID: [id number] DOCUMENT ID: [id number] TREY MORGAN MD at 1307 CC: [id number] DICTATION DATE: 12/16/19 1628 3D ARTIST: 12/17/19 0202 ADM IN [facility] [address] [place] [address]
--- NOTE | 2019-12-17 13:53 | NUR ---
ABBY CALLED TO CHECK ON PT. SHE WANTED TO LET HER KNOW THAT [facility] HAD HER DOG. NURSE GAVE AN UPDATE ON HOW SHE WAS DOING. NURSE TOLD HER SHE WAS DOING BETTER THAN SHE WAS UPON ADMISSION. NURSE TOLD PT HER DOG WAS WITH [facility]. PT HAD A OUTBURST SEVERAL MINUTES PRIOR TO NURSE SPEAKING WITH HER. SHE STATE TO ONE OF THE TECHS TO SHUT THE F UP. AND WALKED OFF. PT CAME BACK LATER AND SAID SHE WAS SORRY.
--- NOTE | 2019-12-17 17:50 | NUR ---
PT CONTS TO BE DOWN AND HAVE BOUTS OF CRYING AT TIMES. PT STATED SHE HAS NO MEMORY AND SHE KNOWS THAT. NURSE REDIRECTS PT BEHAVIOR WITH COPING FACTORS. PT SUCCESSFUL DID AT THIS TIME.
[2019-12-17 20:00] VITALS: BP 100/55
--- NOTE | 2019-12-17 20:25 | NUR ---
RECEIVED IN DAYROOM. SITTING IN A CHAIR WITH PEERS AT HER SIDE. SOCIAL WITH STAFF AND PEERS. CALM AND COOPERATIVE WITH CARE AND ASSESSMENT. REDIRECT AND REORIENT NEEDED. CONTINUES TO SIT CALMLY IN DAYROOM. CONTINUE PLAN OF CARE.
[2019-12-18 08:00] VITALS: BP 102/58
--- NOTE | 2019-12-18 12:57 | NUR ---
RECEIVED IN HALLWAY OUTSIDE OF NURSES STATION. CALM AND COOPERATIVE WITH CARE AND ASSESSMENT. NO BEHAVIORS THIS MORNING. REDIRECT AND REORIENT NEEDED. EATING LUNCH AT THIS TIME. CONTINUE PLAN OF CARE.
--- NOTE | 2019-12-18 14:04 | PN ---
PATIENT:VIKTOR JACKSON MEDICAL RECORD: [id number] LOCATION:[facility]112 ADMISSION DATE: 12/13/19 PROGRESS NOTE DATE OF SERVICE: 12/17/2019 SUBJECTIVE: The patient's case was discussed with staff. She has no new complaint. OBJECTIVE: The patient has been labile and tearful. She has almost no short term memory. She thinks she has been here for 2 weeks. She says she misses her dog and wants to go home. ASSESSMENT: Dementia. PLAN: The patient is going to be treated with a low dose of Klonopin to assist with her anxiety. She will be monitored for clinical changes associated with its use. Her long-term prognosis is guarded. TRANSINT:[id number] Voice Confirmation ID: [id number] DOCUMENT ID: [id number] TRYE MORGAN MD at 1404 CC: [id number] DICTATION DATE: 12/17/19 1434 CERTIFIED ORTHOTIC FITTER: 12/18/19 0117 [facility] [place] [id number] [place] [address]
[2019-12-18 20:00] VITALS: BP 129/59
--- NOTE | 2019-12-19 00:34 | NUR ---
B.) PT IS ALERT AND ORIENTED TO SELF ONLY. SHE IS ABLE TO AMBULATE WITHOUT ASSIST AND MAKE HER NEEDS KNOWN. SHE IS RECEIVED IN THE DAYROOM SOCIALIZING WITH PEERS. SHE IS CALM AND COOPERATIVE. SHE IS INTRUSIVE AT TIMES WITH OTHER PATIENTS CARE. I.) PROVIDED PM MEDICATIONS PRESCRIBED. REDIRECT OFTEN. R.) COMPLIANT WITH ALL MEDICATIONS. EASY TO REDIRECT. P.) WILL CONTINUE TO MONITOR.
--- NOTE | 2019-12-19 08:13 | NUR ---
PT IS ALERT AND ORIENTED TO SELF AND SITUATION AT TIMES. SHE IS CONFUSED HOWEVER ON WHERE SHE CAME HERE FROM. SHE IS ABLE TO AMBULATE ON HER OWN WITHOUT ASSIST. ABLE TO VOICE NEEDS AND WANTS. WILL CONTINUE TO MONITOR.
[2019-12-19 10:25] VITALS: BP 113/65
--- NOTE | 2019-12-19 12:57 | PN ---
PATIENT:VIKTOR JACKSON MEDICAL RECORD: [id number] LOCATION:[facility]ANDA [facility]112 ADMISSION DATE: 12/13/19 PROGRESS NOTE DATE OF SERVICE: 12/18/2019 SUBJECTIVE: The patient's case was discussed with staff. She has no new complaint. OBJECTIVE: The patient is quite anxious and has severe cognitive impairment. She does not remember where she lives. She says that she does have a dog, which is correct and that she needs to be released from the hospital, so she can go rent a house for herself and her dog. She is only partially oriented. ASSESSMENT: Dementia. PLAN: New information has been provided. Apparently, the assisted living center has a happy hour during which they serve cocktails to the residents. The patient also has been going to various other rooms or apartments at the assisted living center and drinking there. I am not sure how much this involves, but this is likely the cause of her deterioration or at least a substantial factor in it. I do not want her to continue to use alcohol. She is in a supervised environment. I am willing to allow her to have a scheduled dose of a benzodiazepine to control her anxiety that is longstanding and very prominent when she is confused about her environment and unable to process the information around her. It will be made clear to the staff at the assisted living center that she should not have any alcohol when she returns there. TRANSINT:[id number] Voice Confirmation ID: [id number] DOCUMENT ID: [id number] TREY MORGAN MD at 1257 CC: [id number] DICTATION DATE: 12/18/19 1440 CUSTOMER DEVELOPMENT REPRESENTATIVE: 12/18/19 1521 ADM IN [place] [address] [place] [address]
[2019-12-19 20:00] VITALS: BP 119/61
--- NOTE | 2019-12-19 23:38 | NUR ---
B) Patient is alert and oriented to person and place, confused at times, calm and cooperative, I) Administered scheduled medications as ordered, assisted with needs, R) medication compliant P) Continue plan of care.
--- NOTE | 2019-12-20 09:29 | NUR ---
The patient is awake and she is pleasant, she has poor insight into her situation. The patient is very confused. She knows her name, but she forgets within minutes. She has no recall of ever living at [facility] with her dog. She is ADL and abulatory independent. Provide presribed meds. The patient is compliant with meds. Continue POC.
[2019-12-20 10:22] VITALS: BP 129/79
--- NOTE | 2019-12-20 14:45 | PN ---
PATIENT:VIKTOR JACKSON MEDICAL RECORD: [id number] LOCATION:[facility]ANDA [facility]112 ADMISSION DATE: 12/13/19 PROGRESS NOTE DATE OF SERVICE: 12/19/2019 SUBJECTIVE: The patient's case was discussed with staff. She has no new complaint. OBJECTIVE: The patient has been labile and intrusive. She has almost no insight about this behavior. She is sleeping and eating adequately. She has not been overtly aggressive. ASSESSMENT: Dementia. PLAN: Current medicines have been reviewed and will be maintained. Her long-term prognosis is guarded. TRANSINT:[id number] Voice Confirmation ID: [id number] DOCUMENT ID: [id number] TREY MORGAN MD at 1445 CC: [id number] DICTATION DATE: 12/19/19 1518 CUFF SLITTER: 12/19/19 2312 ADM IN [place] [address] [place] [address]
--- NOTE | 2019-12-20 18:40 | NUR ---
Patient c/o pain in the right side of her face. She rates it 6/10 and she says she thinks it is a tooth bothering her.
[2019-12-20 20:10] VITALS: BP 107/67
--- NOTE | 2019-12-20 23:10 | NUR ---
B.) PT IS ALERT AND ORIENTED TO SELF, PLACE AND TIME. SHE HAS POOR INSIGHT INTO HER SITUATION. SHE IS INTRUSIVE WITH OTHERS CARE. SHE IS RECEIVED IN THE DAYROOM SOCIALIZING WITH PEERS. SHE IS CALM, COOPERATIVE AND PLEASANT WITH STAFF. I.) PROVIDED PM MEDICATIONS. REDIRECT NEEDED. R.) COMPLIANT WITH ALL MEDICATIONS. EASY TO REDIRECT. P.) WILL CONTINUE TO MONITOR.
--- NOTE | 2019-12-21 11:09 | NUR ---
The patient is awake and alert, she is pleasant and she is resting on the couch at this time. She has a poor short term memory and she has poor insight into her situation. Provide prescribed meds. The patient has not shown any aggression today. Provide prescribed meds. The patient is compliant with meds. Continue POC.
[2019-12-21 11:35] VITALS: BP 119/66
--- NOTE | 2019-12-21 12:46 | PN ---
PATIENT:VIKTOR JACKSON MEDICAL RECORD: [id number] LOCATION:AMANDA [facility]112 ADMISSION DATE: 12/13/19 PROGRESS NOTE DATE OF SERVICE: 12/20/2019 SUBJECTIVE: The patient's case was discussed with staff. She has no new complaint. OBJECTIVE: The patient is in good behavioral control. She has poor insight about her situation. She is sleeping adequately. ASSESSMENT: Dementia. PLAN: Current medicines have been reviewed and if this level of improvement continues through the weekend, I will transfer her back to the assisted living center. TRANSINT:[id number] Voice Confirmation ID: [id number] DOCUMENT ID: [id number] TREY MORGAN MD at 1246 CC: [id number] DICTATION DATE: 12/20/19 1520 ACCOUNT RECEIVABLE CLERK: 12/21/19 0035 ADM IN [place] [id number] [place] [address]
[2019-12-21 20:21] VITALS: BP 110/62
--- NOTE | 2019-12-21 23:16 | NUR ---
B.) PT IS ALERT AND ORIENTED TO SELF AND SITUATION AT TIMES. SHE IS RECEIVED IN THE DAYROOM SOCIALIZING WITH HER PEERS. SHE IS ABLE TO AMBULATE WITH OUT ASSIST. I.) PROVIDED PM MEDICATIONS PRESCRIBED. REDIRECT NEEDED. R.) COMPLIANT WITH ALL MEDICATIONS. EASY TO REDIRECT. P.) WILL CONTINUE TO MONITOR.
[2019-12-22 08:25] VITALS: BP 120/67
--- NOTE | 2019-12-22 10:20 | NUR ---
The patient is calm and quiet, she is interacting with her peers. She has not shown any aggression today. Provide prescribed meds. The patient is compliant with meds. She has not made any mention about leaving today or her puppy. Continue POC.
--- NOTE | 2019-12-22 13:04 | PN ---
PATIENT:VIKTOR JACKSON MEDICAL RECORD: [id number] LOCATION:[facility]ANDA [facility]ender112 ADMISSION DATE: 12/13/19 PROGRESS NOTE DATE OF SERVICE: 12/21/2019 SUBJECTIVE: The patient's case was discussed with staff. She has no new complaint. OBJECTIVE: The patient is calmer today. She has limited insight about her situation. She has not been disruptive. ASSESSMENT: Dementia. PLAN: Current medicines have been reviewed and will be maintained. Supportive and educational interventions were made. Her long-term prognosis is guarded. TRANSINT:[id number] Voice Confirmation ID: [id number] DOCUMENT ID: [id number] TREY MORGAN MD at 1304 CC: [id number] DICTATION DATE: 12/21/19 1314 EXTRACT WRINGER: 12/21/19 1728 ADM IN [facility] [address] [place] [address]
[2019-12-22] MEDS ORDERED: KLONOPIN0.5 MG PO (13:42)
[2019-12-22] MEDS ORDERED: SYNTHROID25 MCG PO (13:42)
[2019-12-22] MEDS ORDERED: VITAMIN B-121000 MCG PO (13:42)
--- NOTE | 2019-12-22 14:52 | PN ---
PATIENT:VIKTOR JACKSON MEDICAL RECORD: [id number] LOCATION:[facility]112 ADMISSION DATE: 12/13/19 PROGRESS NOTE DATE OF SERVICE: 12/22/2019 SUBJECTIVE: The patient's case was discussed with staff. She has no new complaint. OBJECTIVE: The patient denies intent to harm herself or others. She generally tolerates her medicines well. She is impaired cognitively, but has not been disruptive. ASSESSMENT: Dementia. PLAN: Supportive and educational interventions were made. I think the patient is reasonably safe to be transitioned out of the hospital and will discharge her tomorrow. TRANSINT:[id number] Voice Confirmation ID: [id number] DOCUMENT ID: [id number] TREY MORGAN MD at 1452 CC: [id number] DICTATION DATE: 12/22/19 1337 SOFTWARE APPLICATIONS SPECIALIST: 12/22/19 1356 ADM IN [facility] [address] [place] [address]
--- NOTE | 2019-12-22 19:44 | NUR ---
RECEIVED IN DAYROOM. SITTING IN A CHAIR WITH PEERS AT HER SIDE. SOCIAL. CALM AND COOPERATIVE WITH CARE AND ASSESSMENT. NO YELLING OUT. REDIRECT AND REORIENT NEEDED. CONTINUES TO SOCIALIZE WITH PEERS. CONTINUE PLAN OF CARE.
[2019-12-22 20:24] VITALS: BP 118/61
[2019-12-23 09:07] VITALS: BP 138/68
--- NOTE | 2019-12-23 09:44 | NUR ---
Nutrition Follow-up: Diet: Regular PO intake: 95-100% x last 9 meals Last BM: 12/21/19. WT: 142# (12/22/19); Admit WT: 145# (12/13/19) Meds and labs reviewed. Noted -3# wt change. Patient with adequate PO intake however, will continue to monitor. Recommend continue current diet, encourage PO intake. RD following.
--- NOTE | 2019-12-23 13:30 | NUR ---
PATIENT DISCHARGED TO [facility]. PAPERWORK FAXED AND HARD COPY SENT WITH PATIENT. DISCHARGE PAPERWORK AND MEDICATIONS REVIEWED WITH PATIENT AND SHE VERBALIZES UNDERSTANDING. 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 MEDICATIONS CALLED IN TO ALL [facility] LAMINATOR [facility].
--- NOTE | 2019-12-24 13:53 | DS ---
PATIENT:VIKTOR JACKSON :49 MEDICAL RECORD: [id number] DISCHARGE SUMMARY ADMISSION DATE: 12/13/19 DISCHARGE DATE: 12/23/19 IDENTIFYING DATA: The patient is 74 years old and she was admitted to the hospital on a voluntary basis. CHIEF COMPLAINT: Aggression. HISTORY OF PRESENT ILLNESS: The patient is known to me from previous clinical contact. She lives in a local assisted living center. She had recently been hospitalized secondary to some agitation and disruptive behaviors along with some depressive symptoms and now, she apparently has had some behavior outbursts at the assisted living center that they simply cannot manage. She is confused and based on that confusion, she gets agitated, threatening, and disruptive. HOSPITAL COURSE: The patient was admitted to the hospital and fully evaluated from both a medical, psychological, and social standpoint. She was treated with both antidepressant and memory-enhancing medications and showed significant improvement. She was subsequently transitioned back to the assisted living center. DISCHARGE DIAGNOSES: AXIS I: Major neurocognitive disorder of the Alzheimer's type with behavioral disturbances; major depression, moderate severity without psychotic features; generalized anxiety disorder. AXIS II: Cluster C personality traits. AXIS III: Hypertension, hypothyroidism. AXIS IV: Moderate. AXIS V: Global assessment of functioning is 45. PLAN: At the time of discharge, the patient was not acutely dangerous to herself or others. She was tolerating her medications reasonably well. She had limited insight about her situation. Followup is to be with her primary care physician. NTS:[id number] Voice Confirmation ID: [id number] DOCUMENT ID: [id number] TREY MORGAN MD at 1353 CC: [id number] DICTATION DATE: 12/23/19 1520 ENGINEERING PROGRAMMER: 12/24/19 0203 DIS IN 12/23/19 [facility] [address] [place] [address]
== END 2019-12-23 13:15 | DRG 57 ==
LOC: D.PSYCH 15:29
PROVIDERS: ADMIT Psychiatry & Neurology Psychiatry; ATTEND Psychiatry & Neurology Psychiatry
DX: G30.1 Alzheimer's disease with late onset (principal); F02.81 Dementia in other diseases classified elsewhere, unspecified severity, with behavioral disturbance; F32.9 Major depressive disorder, single episode, unspecified; Z72.89 Other problems related to lifestyle; D50.9 Iron deficiency anemia, unspecified; I10 Essential (primary) hypertension; F41.8 Other specified anxiety disorders; E78.1 Pure hyperglyceridemia